=== PATIENT | female | born 1950 | race Caucasian/White ===

== ENCOUNTER 2020-01-25 12:04 | Outpatient (CLI) | payer MEDICARE, SELFPAY ==
--- NOTE | 2020-01-25 13:00 | ECG_ITS ---
Measurements Intervals [place] Rate: 76 P: -23 NE: 134 QRS: -28 QRSD: 80 T: 21 QT: 372 QTc: 419 Interpretive Statements SINUS RHYTHM ATRIAL PREMATURE COMPLEX VOLTAGE CRITERIA FOR LVH POOR R WAVE PROGRESSION, ANTERIOR LEADS MINIMAL Q WAVES- HIGH LATERAL LEADS BASELINE ARTIFACT- I, II, III, AVR, AVL, AVF BORDERLINE ECG Electronically Signed On 01-25-2020 16:27:17 CDT by Berry Frazier D.O.
[2020-01-25 13:29] LABS: Basophils Percent Auto 0.4 % (0.2-1.2); Eosinophils Absolute Auto 0.4 K/mm3 (0-0.3); Eosinophils Percent Auto 3.4 % (0-4.4); Hematocrit 39.9 % (37.0-47.0); Hemoglobin 12.9 g/dL (12.0-15.0); Immature Granulocyte Absolute 0.07 K/mm3 (0.00-0.031); Immature Granulocyte Percent A 0.6 % (0-0.5); Lymphocytes Absolute Auto 3.07 K/mm3 (0.9-3.2); Lymphocytes Percent Auto 27.9 % (18.3-44.2); Mean Corpuscular HGB Conc 32.3 g/dl (32-36); Mean Corpuscular Hemoglobin 29.7 pg (26-34); Mean Corpuscular Volume 91.7 fl (80-100); Mean Platelet Volume 9.4 fl (7.4-10.4); Monocytes Absolute Auto 0.7 K/mm3 (0.1-0.6); Monocytes Percent Auto 6.5 % (2.6-8.5); Neutrophils Absolute Auto 6.7 K/mm3 (1.3-6.7); Neutrophils Percent Auto 61.2 % (45.5-73.1); Platelet Count Result 399 k/mm3 (150-375); Red Blood Count 4.35 M/mm3 (4.2-5.4); Red Cell Distribution Width 14.1 % (11.5-14.5)
[2020-01-25 13:38] LABS: Urine Cotinine NEGATIVE
[2020-01-25 13:40] LABS: Albumin Level 4.2 g/dL (3.5-5.1); Estimated Glomerular Filt Rate > 60; Glucose 103 mg/dL (65-105)
[2020-01-25 13:41] LABS: Hemoglobin A1C 5.8 % (<5.7)
== END 2020-01-25 12:05 | disposition home or self-care (01) ==
LOC: ANHSURGERY 12:10
PROVIDERS: PCP Internal Medicine; Visit Provider Orthopaedic Surgery
DX: Z01.818 Encounter for other preprocedural examination (principal); M16.11 Unilateral primary osteoarthritis, right hip
CPT/HCPCS: 36415; 80307; 82040; 82565; 82947; 83036; 85025; 86850; 86900; 86901; 93005

== ENCOUNTER 2020-02-04 01:28 | Outpatient (CLI) | payer MEDICARE, SELFPAY ==
[2020-02-04 18:20] LABS: SARS-CoV-2 RNA PCR Negative
== END 2020-02-04 01:29 | disposition home or self-care (01) ==
LOC: ANHCOVIDDT 01:28
PROVIDERS: PCP Internal Medicine; Visit Provider Orthopaedic Surgery
DX: Z01.812 Encounter for preprocedural laboratory examination (principal); Z11.59 Encounter for screening for other viral diseases
CPT/HCPCS: 87635; C9803; U0003

== ENCOUNTER 2020-02-06 01:44 | Day surgery (SDC) | payer MEDICARE, SELFPAY ==
[2020-01-25 12:36] VITALS: BP 160/84; PULSE 74; RESP 22; TEMP 37.1; O2SAT 97
[2020-01-25 13:03] VITALS: BMI 40.1
--- NOTE | 2020-02-01 12:44 | PM.IMHP ---
H&P: HPI History of Present Illness Date/Time: 02/01/20 12:44 Chief complaint: Right Hip OA Narrative: Jennifer Carter is a 69 year old female who has an ongoing chronic history of right hip pain. Patient has pain in the right hip this radiates into her anterior thigh from the groin. She has pain with ambulation started pain wrist pain and night pain. She can not stand or walk for long periods. She is noting that over time her pain is worsening and despite conservative measures including anti-inflammatories and activity modification or symptoms continue. She notes decreasing range of motion and limitation of function in her daily life. X-rays show advanced primary osteoarthritis in the right hip joint. At this point the patient is discuss further treatment options in detail with Dr. Rai she not to proceed with right total hip arthroplasty. Review of Systems Review of Systems: All systems reviewed & are unremarkable except as noted in HPI and below PMFSH Social History Social History Smoking status: Never smoker Alcohol intake: current Substance use: never Spiritual care concerns: No Meds Home Medications and Allergies Home Medications Medication Instructions Recorded Confirmed Type escitalopram oxalate [Lexapro] 10 mg PO DAILY 01/25/20 01/25/20 History metoprolol succinate 50 mg PO DAILY 01/25/20 01/25/20 History Allergies Allergy/AdvReac Type Severity Reaction Status Date / Time Penicillins AdvReac Hives Verified 01/25/20 12:30 Exam Narrative: Exam Narrative: Patient is well-developed well-nourished female no acute distress. She is alert and oriented x3. Normal mood and affect. Hearing and vision intact. HEENT exam within normal limits. Heart regular rate rhythm. Lungs clear auscultation. Abdomen benign. Extremities showed the patient's right hip to be painful with manipulation and range of motion. She walks an antalgic gait because of her groin pain on the right, she has limited internal external rotation with a positive Stinchfield positive Darshana exam and pain with extremes of motion. Right hip joint is otherwise stable strength is 5 5. neurovascular the patient is intact. Skin is intact without rashes or lesions. Central nervous system exam within normal limits. Assessment and Plan Additional Plan Patient has advanced severe primary osteoarthritis right hip joint. The patient has discussed risks benefits limitations and alternatives to surgery in great detail Dr. Rai she has noted proceed with right total hip arthroplasty. Patient is scheduled to go surgery 02/06/[address] [facility] [address]. Rai. The patient voiced understanding agrees above plan.
[2020-02-06] VITALS (13 sets, daily range): BP systolic 109–143; BP diastolic 45–76; PULSE 60–99; RESP 14–21; TEMP 36.2–37.1; O2SAT 91–100
--- NOTE | ~2020-02-06 | XR_ITS ---
EXAMINATION: XR surgery orthopedic DATE: 02/06/2020 09:18 INDICATION: Intraoperative evaluation during right total hip arthroplasty TECHNIQUE: Frontal view of the right hip was obtained. COMPARISON: None. FINDINGS: Intraoperative image during a right total hip arthroplasty demonstrate placement of an acetabular com ponent fixed with at least 2 screws which appears in near anatomic alignment on the single image prov ided. A femoral broach is in place with the proximal tip centered over the acetabular component. Por tions of the pelvis are obscured by overlying bolsters. No fractures in the visualized bones. Mild le ft hip osteoarthritis. IMPRESSION: 1. Expected appearance during right total hip arthroplasty. Reviewed, dictated and finalized at location A.
[2020-02-06] MEDS: LACTATED RINGERS 1,000 ML 30 ML IV CONT ×2 (07:08→09:51)
--- NOTE | 2020-02-06 07:10 | WPDHPUPDATE1 ---
History and Physical Update Update Date/Time: 02/06/20 07:10 History and Physical has been reviewed, including an updated exam of the patient. There are NO changes in the patient's condition. Risks, benefits, and alternatives have been discussed and questions answered. Patient agrees to proceed with procedure.
[2020-02-06] MEDS: ACETAMINOPHEN 500 MG TABLET 1000 MG PO (07:19)
[2020-02-06] MEDS: TRANEXAMIC ACID 1,000MG/ISO100 1,000 MG/100 ML BAG 200 MG IVPB (07:19)
--- NOTE | 2020-02-06 07:20 | WPDANESEPPF ---
Anes - Initial Pre Proc Eval Procedure: Operation Date: 02/06/20 07:30 Proposed Procedures p Right Total Hip Arthroplasty - Master Rai MD Date/Time: 02/06/20 07:20 Surgeon: Master Rai MD Pre Op Diagnosis: Right Hip OA Patient Data Age: 69 Gender: F Height: 5 ft 1 in Weight: 96.4 kg Last Vital Signs Temp 37.1 C 01/25/20 12:36 Pulse 74 01/25/20 12:36 Resp 22 H 01/25/20 12:36 BP 160/84 H 01/25/20 12:36 Pulse Ox 97 01/25/20 12:36 Allergies Allergy/AdvReac Type Severity Reaction Status Date / Time Penicillins AdvReac Hives Verified 01/25/20 12:30 Home Medications Medication Instructions Recorded Confirmed Type escitalopram oxalate [Lexapro] 10 mg PO DAILY 01/25/20 02/06/20 History metoprolol succinate 50 mg PO DAILY 01/25/20 02/06/20 History Patient hx anesthesia problems: none Family hx anesthesia problems: none [facility] Past Medical History Medical History (Updated 02/06/20 @ 07:20 by Abe Levy MD) Depression HTN (hypertension) Morbid obesity MELVIN (obstructive sleep apnea) Social History Social History Smoking status: Never smoker Alcohol intake: current Substance use: never Living arrangements: alone Spiritual care concerns: No Anes - Eval Final PreProcedure Day of Procedure 02/06/20 07:20 Patient weight: morbidly obese Heart: regular rate and rhythm Lungs: clear to auscultation Airway: Mallampati scale class II Neurological: alert and oriented Last oral intake: >/= 8 hours ASA classification: III Emergent: no Anesthetic plan: proceed Anesthesia type and monitoring: general ETT and standard monitoring Informed Consent: The patient's anesthetic plan of GA with ETT and its attendant risks including CA, prolonged ventilation and blood clots in this morbidly obese patient with a BMI of greater than 40 and benefits were discussed with the patient/family/POA. Questions were solicited and answers provided to the satisfaction of the patient/family/POA.
[2020-02-06] MEDS: ceFAZolin 2 GM/D5W 50 ML 2 GM/50 ML BAG IVPB ×2 (07:29→15:12)
--- NOTE | 2020-02-06 09:12 | PM.PROC ---
Procedure Note - Detailed Date of procedure: 02/06/20 Pre-op diagnosis: Right Hip OA Post-op diagnosis: same Procedure performed: [Right] total hip arthroplasty Description of procedure: Patient was brought to the operating room and anesthetic was administered. The patient was placed with the [side] up and steriley prepped and draped in the usual manner. Longitudinal incision was done, dissection carried down to the fascia. A Hardinge type approach was used and the femoral head was dislocated anteriorly. Femoral head was removed a finger breath above the lesser trochanter. The acetabulum was serially reamed to accept a [52] component. This was impacted into place and secured with 2 25mm screws. A high wall liner was placed. The femur was reamed and broached to accept a [8] component which was impacted into place. A plus [0] ball and neck were placed and the hip was put through full range of motion. The hip was noted to be stable. The wounds were then closed in a layer fashion using #5 ethibond, 2 vicryl, 2-0 vicryl and jamison. Patient left the operating room in satisfactory condition. The femur cracked and had to be cabled and the stem reinserted. Anesthesia: GETA Surgeon: Master Rai MD Estimated blood loss (mL): 600 Drains: No Packing: No Pathology: none sent Complications: No immediate complications Condition: stable Disposition: PACU Findings: Arthritis
--- NOTE | 2020-02-06 11:20 | ADMGEN ---
This patient, Jennifer Carter, was admitted to Medical Room 258-01. Patient/family oriented to hospital policies and general routines including ID bracelet, bed and alarms, visiting hours, pain management, procedures, bathroom and other care routines, personal items, smoking policy, room service/diet, and visiting hours. Valuables list has been completed. Information on how to activate the Rapid Response Team has been discussed. Patient/Family are encouraged to report perceived risks to care and to ask questions if they do not understand what they are told or what they should do.
[2020-02-06] MEDS: SODIUM CHLORIDE 0.9% IV 1,000 ML 125 ML IV CONT (11:31)
[2020-02-06] MEDS: DOCUSATE SODIUM 100 MG CAPSULE PO ×2 (12:25→17:38)
[2020-02-06] MEDS: CELECOXIB 200 MG CAPSULE PO ×2 (12:25→17:38)
[2020-02-06] MEDS: RIVAROXABAN 10 MG TABLET PO (17:38)
[2020-02-07] MEDS: ceFAZolin 2 GM/D5W 50 ML 2 GM/50 ML BAG IVPB ×2 (00:12→08:13)
[2020-02-07 02:00] VITALS: BP 121/55; PULSE 72; RESP 20; TEMP 36.4; O2SAT 97
--- NOTE | 2020-02-07 02:00 | WPDCN ---
Assessment and Plan Assessment and plan (1) Osteoarthritis of right hip: Code(s): M16.11 - Unilateral primary osteoarthritis, right hip Status: Acute Assessment and Plan: Postoperative day 1, right total hip arthroplasty. Wound care and pain control deferred to Dr. Rai. DVT prophylaxis also per primary service. CBC and BMP ordered for a.m. (2) Hypertension: Code(s): I10 - Essential (primary) hypertension Status: Acute Assessment and Plan: Blood pressures reviewed and they are stable postoperatively. Resume metoprolol and monitor daily. (3) Depression: Code(s): F32.9 - Major depressive disorder, single episode, unspecified Status: Acute Assessment and Plan: Continue escitalopram. (4) Obstructive sleep apnea: Code(s): G47.33 - Obstructive sleep apnea (adult) (pediatric) Status: Acute Assessment and Plan: She stopped using her CPAP quite awhile ago and I encouraged her to reconsider. Additional Plan Thank you for allowing us to participate in this patient's care. Please do not hesitate to contact us with any questions. Supervising physician for this medical consultation is Dr. Dave Pereira. HPI Data of Consult Date/Time: 02/07/20 02:00 Requesting Physician: Master Rai MD Primary Care Provider: Catarino Rogers, Consult Narrative Narrative: Jennifer Carter is a 69-year-old female with osteoarthritis, hypertension, untreated obstructive sleep apnea, peripheral neuropathy, and depression whom the hospitalist service has been consulted for management of her medical conditions, status post elective right total hip arthroplasty. She is not a great historian, and seems somewhat forgetful with regards to her medical history. She has had longstanding pain in her right hip not amenable to conservative outpatient treatment and thus she elected for replacement today. Her surgery was performed under general anesthesia with no immediate complications documented an estimated blood loss of 600 mL. Postoperatively she is having pain mainly when up and trying to get to the bathroom. She denies postoperative fever, chills, chest pain, shortness of breath, nausea, or vomiting. She also denies paresthesias, skin color, and temperature changes distal to the surgical site. Review of Systems Review of Systems: Narrative: Twelve systems were reviewed with pertinent positives and negatives as per HPI. No fever, chills, or sweats. She denies recent cold flu symptoms. No sick contacts or exposure to those positive for COVID 19. Sounds like she has chronic dyspnea on exertion, which is unchanged. She ambulates with a wheeled walker and denies any recent falls. She lives a pretty sedentary lifestyle, and seems to spend a lot of time in a chair. No nausea, vomiting, or diarrhea. She denies dysuria and hematuria. No personal or family history of venous thromboembolism. Except as documented, all other systems were reviewed and are negative. [facility] Past Medical History Medical History (Updated 02/07/20 @ 03:53 by Flower Blanco PA-C) Depression Gastroesophageal reflux Hypertension Morbid obesity Obstructive sleep apnea No longer using her CPAP. Osteoarthritis Surgical History Surgical History (Updated 02/07/20 @ 03:48 by Flower Blanco PA-C) History of cataract extraction History of total right hip arthroplasty (~02/06/20) Family History Family History (Updated 02/07/20 @ 03:49 by Flower Blanco PA-C) Mother Acute myocardial infarction Father Accidental Social History Social History (Updated 02/07/20 @ 03:50 by Flower Blanco PA-C) Social History: The patient lives alone in her own steph
[2020-02-07 05:48] VITALS: BP 126/57; PULSE 72; RESP 20; TEMP 36.1; O2SAT 97
[2020-02-07 06:02] LABS: Basophils Percent Auto 0.2 % (0.2-1.2); Eosinophils Absolute Auto 0.1 K/mm3 (0-0.3); Eosinophils Percent Auto 0.9 % (0-4.4); Hemoglobin 9.7 g/dL (12.0-15.0); Immature Granulocyte Percent A 0.8 % (0-0.5); Lymphocytes Absolute Auto 2.93 K/mm3 (0.9-3.2); Mean Corpuscular HGB Conc 32.3 g/dl (32-36); Mean Corpuscular Hemoglobin 29.7 pg (26-34); Mean Corpuscular Volume 91.7 fl (80-100); Mean Platelet Volume 9.7 fl (7.4-10.4); Monocytes Absolute Auto 1.4 K/mm3 (0.1-0.6); Monocytes Percent Auto 10.1 % (2.6-8.5); Neutrophils Absolute Auto 8.8 K/mm3 (1.3-6.7); Platelet Count Result 315 k/mm3 (150-375); Red Blood Count 3.27 M/mm3 (4.2-5.4); Red Cell Distribution Width 14.1 % (11.5-14.5); White Blood Count 13.3 K/mm3 (4.5-10.0)
[2020-02-07 06:12] LABS: Anion Gap 7 mmol/L (8-16); Blood Urea Nitrogen 14 mg/dL (7-17); Calcium 8.4 mg/dL (8.4-10.2); Carbon Dioxide 21 mmol/L (22-30); Chloride 107 mmol/L (98-107); Estimated CRCL calculation 80 ml/min; Estimated Glomerular Filt Rate > 60; Glucose 113 mg/dL (65-105); Potassium 4.1 mmol/L (3.4-5.0); Sodium 135 mmol/L (137-145)
[2020-02-07] MEDS: ESCITALOPRAM OXALATE 10 MG TABLET PO (08:14)
[2020-02-07] MEDS: CELECOXIB 200 MG CAPSULE PO (08:14)
[2020-02-07] MEDS: DOCUSATE SODIUM 100 MG CAPSULE PO (08:14)
--- NOTE | 2020-02-07 08:46 | WPDANESPN ---
Anes - Prog Note Post-Op Date/Time: 02/07/20 08:46 Cardiovascular status: normal Respiratory status: normal Airway patency: baseline Mental status: baseline Post-Op hydration status: normal Vital Signs: Last Vital Signs Temp 36.1 C L 02/07/20 05:48 Pulse 72 02/07/20 05:48 Resp 20 02/07/20 05:48 BP 126/57 L 02/07/20 05:48 Pulse Ox 97 02/07/20 05:48 I/O: Intake & Output 02/06/20 02/07/20 02/07/20 23:59 07:59 15:59 Intake Total 540 170 Output Total 1 Balance 540 169 Laboratory Tests 02/07/20 05:38 02/07/20 05:38 02/07/20 02/07/20 02/07/20 05:38 05:38 05:38 WBC 13.3 H RBC 3.27 L Hgb 9.7 L D Hct 30.0 L MCV 91.7 MCH 29.7 MCHC 32.3 RDW 14.1 Plt Count 315 MPV 9.7 Immature Gran % (Auto) 0.8 H Neut % (Auto) 66.0 Lymph % (Auto) 22.0 [place] % (Auto) 10.1 H Eos % (Auto) 0.9 Baso % (Auto) 0.2 Lymph # (Auto) 2.93 [place] # (Auto) 1.4 H Eos # (Auto) 0.1 Baso # (Auto) 0.0 Abs Immat Gran (auto) 0.10 H Absolute Neuts (auto) 8.8 H Absolute Nucleated RBC 0.0 Nucleated RBC % 0.0 Sodium 135 L Potassium 4.1 Chloride 107 Carbon Dioxide 21 L Anion Gap 7 L BUN 14 Creatinine 0.60 L Estim Creat Clear Calc 80 Estimated GFR > 60 Glucose 113 H Calcium 8.4 Magnesium 2.0 Post-procedural complaints: none Patient Feedback: Patient satisfied with anesthetic care.
[2020-02-07 10:00] VITALS: BP 132/75; PULSE 81; RESP 16; TEMP 36.8; O2SAT 98
[2020-02-07 14:00] VITALS: BP 121/42; PULSE 87; RESP 15; TEMP 36.7; O2SAT 97
--- NOTE | 2020-02-07 14:03 | PM.PNORT ---
Subjective Subjective Date/Time Seen: 02/07/20 14:03 Objective Data Vital Signs Vital Signs: Vital Signs - 24 hr 02/06/20 18:00 02/06/20 22:00 02/07/20 02:00 Temperature 37.1 C 36.2 C L 36.4 C L Pulse Rate 83 76 72 Respiratory Rate 15 20 20 Blood Pressure 111/45 L 125/55 L 121/55 L Pulse Oximetry 97 99 97 02/07/20 05:48 02/07/20 10:00 Temperature 36.1 C L 36.8 C Pulse Rate 72 81 Respiratory Rate 20 16 Blood Pressure 126/57 L 132/75 Pulse Oximetry 97 98 Intake/Output Intake/Output: Intake & Output 02/04/20 02/05/20 02/06/20 02/07/20 23:59 23:59 23:59 23:59 Intake Total 1580 460 Output Total 1 Balance 1580 459 Meds/Results Medications: Active Medications Generic Name Dose Route Start Last Admin Trade Name Freq PRN Reason Stop Dose Admin Celecoxib 200 mg 02/06/20 11:02 02/07/20 08:14 Celebrex PO 200 mg BIDWM LINH Administration Docusate Sodium 100 mg 02/06/20 11:02 02/07/20 08:14 Colace Capsule PO 100 mg BID LINH Administration Escitalopram Oxalate 10 mg 02/07/20 09:00 02/07/20 08:14 Lexapro PO 10 mg DAILY LINH Administration Morphine Sulfate 4 mg 02/06/20 11:02 Morphine Sulfate Inj IV PUSH Q2H PRN Breakthrough pain rated 7-10 Naloxone HCl 0.1 mg 02/06/20 11:02 Narcan IV PUSH Q2M PRN Opiate Reversal Oxycodone HCl 5 mg 02/06/20 11:02 Roxicodone Ir Tablet PO Q4H PRN Pain Rated 4-6 Oxycodone HCl 5 mg 02/06/20 11:00 02/07/20 11:08 Roxicodone Ir Tablet PO 5 mg Q4H LINH Administration Rivaroxaban 10 mg 02/06/20 17:00 02/06/20 17:38 Xarelto PO 02/17/20 17:01 10 mg DAILY@17 LINH Administration Tramadol HCl 50 mg 02/06/20 11:02 Ultram PO Q4H PRN Pain Rated 1-3 Radiology Results: ITS Impressions Intraoperative X-Ray 02/06/20 09:43 IMPRESSION: 1. Expected appearance during right total hip arthroplasty. Labs Labs: Laboratory Results - last 24 hr 02/07/20 02/07/20 02/07/20 05:38 05:38 05:38 WBC 13.3 H RBC 3.27 L Hgb 9.7 L D Hct 30.0 L MCV 91.7 MCH 29.7 MCHC 32.3 RDW 14.1 Plt Count 315 MPV 9.7 Immature Gran % (Auto) 0.8 H Neut % (Auto) 66.0 Lymph % (Auto) 22.0 [place] % (Auto) 10.1 H Eos % (Auto) 0.9 Baso % (Auto) 0.2 Lymph # (Auto) 2.93 [place] # (Auto) 1.4 H Eos # (Auto) 0.1 Baso # (Auto) 0.0 Abs Immat Gran (auto) 0.10 H Absolute Neuts (auto) 8.8 H Absolute Nucleated RBC 0.0 Nucleated RBC % 0.0 Sodium 135 L Potassium 4.1 Chloride 107 Carbon Dioxide 21 L Anion Gap 7 L BUN 14 Creatinine 0.60 L Estim Creat Clear Calc 80 Estimated GFR > 60 Glucose 113 H Calcium 8.4 Magnesium 2.0
--- NOTE | 2020-02-07 14:54 | PM.IMPN ---
Progress Note: A&P Assessment and Plan (1) Osteoarthritis of right hip: Code(s): M16.11 - Unilateral primary osteoarthritis, right hip Status: Acute Assessment and Plan: Postoperative day 1, right total hip arthroplasty. Wound care and pain control deferred to Dr. Rai. DVT prophylaxis also per primary service., Juan C. will be discharged home with home physical therapy when ortho decides (2) Hypertension: Code(s): I10 - Essential (primary) hypertension Status: Acute Assessment and Plan: Blood pressures reviewed and they are stable postoperatively. ortho has held metoprolol and since she has no known underlying cardiac ischemia will continue to monitor and resume metoprolol XL on discharge (3) Depression: Code(s): F32.9 - Major depressive disorder, single episode, unspecified Status: Acute Assessment and Plan: Continue escitalopram. (4) Obstructive sleep apnea: Code(s): G47.33 - Obstructive sleep apnea (adult) (pediatric) Status: Acute Assessment and Plan: She stopped using her CPAP quite awhile ago and I encouraged her to reconsider. (5) Postoperative anemia due to acute blood loss: Code(s): D62 - Acute posthemorrhagic anemia Status: Acute Assessment and Plan: hemoglobin dropped 2-3 units postoperatively and tolerating well. Can follow as an outpatient if needed Subjective Date/time seen: 02/07/20 14:54 Interval history: Date of visit 02/06. 69-year-old hypertensive white female who underwent right total hip arthroplasty on the . Do and well up with therapy with some pain to be expected. no shortness of breath chest pain or palpitation. anticipating discharge home today. Exam Narrative: Exam Narrative: blood pressure 122/52 pulse is 86 and regular afebrile General: lying comfortably in bed HEENT: Pupils reactive. Neck: Supple. Respiratory: Lungs are clear to auscultation bilaterally. Cardiovascular: Regular rate and rhythm with S1-S2. 2/6 systolic murmur best heard at the upper sternal border. Gastrointestinal: Abdomen is soft, obese, nontender, and nondistended with positive bowel sounds. Skin: Warm and dry. No rash or lesions seen Extremities: No edema. Radial and pedal pulses intact. Musculoskeletal: Right hip dressing is clean, dry, and intact. She is neurovascular intact distal to the surgical site. Neurological: Alert and oriented x3. Cranial nerves 2-12 grossly intact. No gross focal deficits Psychiatric: She is pleasant and cooperative. Objective Data Vital Signs Vital Signs: Vital Signs - 24 hr 02/06/20 18:00 02/06/20 22:00 02/07/20 02:00 Temperature 37.1 C 36.2 C L 36.4 C L Pulse Rate 83 76 72 Respiratory Rate 15 20 20 Blood Pressure 111/45 L 125/55 L 121/55 L Pulse Oximetry 97 99 97 02/07/20 05:48 02/07/20 10:00 02/07/20 14:00 Temperature 36.1 C L 36.8 C 36.7 C Pulse Rate 72 81 87 Respiratory Rate 20 16 15 Blood Pressure 126/57 L 132/75 121/42 L Pulse Oximetry 97 98 97 Intake/Output Intake/Output: Intake & Output 02/04/20 02/05/20 02/06/20 02/07/20 23:59 23:59 23:59 23:59 Intake Total 1580 700 Output Total 1 Balance 1580 699 Meds/Results Medications: Active Medications Generic Name Dose Route Start Last Admin Trade Name Freq PRN Reason Stop Dose Admin Celecoxib 200 mg 02/06/20 11:02 02/07/20 08:14 Celebrex PO 200 mg BIDWM [facility] Administration Docusate Sodium 100 mg 02/06/20 11:02 02/07/20 08:14 Colace Capsule PO 100 mg BID LINH Administration Escitalopram Oxalate 10 mg 02/07/20 09:00 02/07/20 08:14 Lexapro PO 10 mg DAILY LINH Administration Morphine Sulfate 4 mg 02/06/20 11:02
== END 2020-02-07 14:54 | disposition home health service (06) ==
LOC: ANHSURGERY 06:19 → ANH2MED 11:09
PROVIDERS: Physician Assistant; PCP Internal Medicine; Visit Provider Orthopaedic Surgery
PROC: (CPT 27130; principal; 2020-02-06 07:30)
DX: M16.11 Unilateral primary osteoarthritis, right hip (principal); I10 Essential (primary) hypertension; G47.33 Obstructive sleep apnea (adult) (pediatric); F32.9 Major depressive disorder, single episode, unspecified; E66.01 Morbid (severe) obesity due to excess calories; Z68.41 Body mass index [BMI] 40.0-44.9, adult
CPT/HCPCS: 27130; 36415; 80048; 80307; 82040; 82565; 82947; 83036; 83735; 85025; 86850; 86900; 86901; 93005; 97110; 97116; 97161; 97165; 97530; A9270; C1713; C1776; J0171; J0330; J0690; J1100; J1170; J1885; J2250; J2270; J2370; J2405; J2704; J2710; J2795; J3010; J3370; J7030; J7120

== ENCOUNTER 2020-03-07 20:54 | Emergency (ER) | payer MEDICARE, SELFPAY ==
[2020-03-07 20:56] VITALS: BP 149/68; PULSE 88; RESP 16; TEMP 36.3; O2SAT 98
[2020-03-07 21:14] LABS: Basophils Percent Auto 0.3 % (0.2-1.2); Eosinophils Absolute Auto 0.4 K/mm3 (0-0.3); Eosinophils Percent Auto 3.5 % (0-4.4); Hematocrit 35.5 % (37.0-47.0); Hemoglobin 11.5 g/dL (12.0-15.0); Immature Granulocyte Absolute 0.07 K/mm3 (0.00-0.031); Immature Granulocyte Percent A 0.6 % (0-0.5); Lymphocytes Absolute Auto 4.01 K/mm3 (0.9-3.2); Lymphocytes Percent Auto 31.9 % (18.3-44.2); Mean Corpuscular HGB Conc 32.4 g/dl (32-36); Mean Corpuscular Hemoglobin 28.9 pg (26-34); Mean Corpuscular Volume 89.2 fl (80-100); Mean Platelet Volume 9.3 fl (7.4-10.4); Monocytes Percent Auto 7.9 % (2.6-8.5); Neutrophils Percent Auto 55.8 % (45.5-73.1); Platelet Count Result 417 k/mm3 (150-375); Red Blood Count 3.98 M/mm3 (4.2-5.4); Red Cell Distribution Width 13.6 % (11.5-14.5); White Blood Count 12.6 K/mm3 (4.5-10.0)
[2020-03-07 21:26] LABS: Alanine Aminotransferase 14 U/L (4-35); Albumin Level 4.3 g/dL (3.5-5.1); Alkaline Phosphatase 135 U/L (38-126); Anion Gap 8 mmol/L (8-16); Aspartate Amino Transferase 19 U/L (14-36); Bilirubin,Total 0.1 mg/dL (0.2-1.3); Blood Urea Nitrogen 18 mg/dL (7-17); Calcium 9.3 mg/dL (8.4-10.2); Carbon Dioxide 22 mmol/L (22-30); Chloride 108 mmol/L (98-107); Estimated Glomerular Filt Rate > 60; Glucose 116 mg/dL (65-105); Lactic Acid Reflex 1.4 mmol/L (0.7-2.1); Potassium 4.8 mmol/L (3.4-5.0); Sodium 138 mmol/L (137-145)
[2020-03-07 21:30] LABS: Atypical Lymphocytes Present; Platelet Estimate Increased (Adequate)
--- NOTE | 2020-03-07 21:31 | ED.WOUNDLAC ---
HPI - Wound/Laceration General Chief Complaint: Wound/Laceration Stated Complaint: poss post-op infect Time Seen by Provider: 03/07/20 21:31 History of Present Illness HPI narrative: Right hip replacement [address] Rai. Over the past few days the wound became painful, red and hot, and she reports a large amount of brown drainage. Currently her symptoms have largely subsided, she continues to have a small amount of drainage. No fever, or other systemic symptoms. Related Data Home Medications Medication Instructions Recorded Confirmed escitalopram oxalate [Lexapro] 10 mg PO DAILY 01/25/20 02/06/20 metoprolol succinate 50 mg PO DAILY 01/25/20 02/06/20 Allergies Allergy/AdvReac Type Severity Reaction Status Date / Time Penicillins AdvReac Hives Verified 02/06/20 11:22 Review of Systems Review of Systems: All systems reviewed & are unremarkable except as noted in HPI and below Constitutional: Constitutional: Denies chills, Denies fever(s) and Denies weakness Cardiovascular: Cardiovascular: Denies chest pain Respiratory: Respiratory: Denies dyspnea Gastrointestinal: Gastrointestinal: Denies nausea Neurologic: Denies numbness and Denies weakness [facility] Past Medical History Medical History Depression Gastroesophageal reflux Hypertension Morbid obesity Obstructive sleep apnea No longer using her CPAP. Osteoarthritis Surgical History Surgical History History of cataract extraction History of total right hip arthroplasty (~02/06/20) Family History Family History Mother Acute myocardial infarction Father Accidental Social History Social History Social History: The patient lives alone in her own home in [place]. She is a lifelong nonsmoker and denies alcohol and illicit substance use. She has 5 children, and names them all as her surrogate decision makers. She wishes to be a full code. Spiritual care concerns: No Exam Const: General: no acute distress and alert Orientation/consciousness: patient oriented x3 HENMT: Head: normal to inspection Resp: Effort & Inspection: normal respiratory effort Cardio: Other: 2+ right DP pulse Skin: Other: Healed surgical wound with punctate opening centrally draining a small amount of brown tinged serous fluid. No significant erythema or induration. Neuro: General: patient oriented x3 and moves all extremities Speech: normal speech Extrem: General: normal to inspection Course Vital Signs Vital signs: Vital Signs Temperature 36.3 C L 03/07/20 20:56 Pulse Rate 88 03/07/20 20:56 Respiratory Rate 16 03/07/20 20:56 Blood Pressure 149/68 H 03/07/20 20:56 Pulse Oximetry 98 03/07/20 20:56 Temperature 36.3 C L 03/07/20 20:56 Pulse Rate 99 03/07/20 21:35 Respiratory Rate 20 03/07/20 21:35 Blood Pressure 167/66 H 03/07/20 21:35 Pulse Oximetry 99 03/07/20 21:35 MDM - Wound/Laceration MDM Narrative Medical decision making narrative: She most likely has a draining seroma. Given her description of being red and hot along with her mild leukocytosis I am concerned that it could have some infectious component. I will start her on bactrim for 7 days. Medical Records Attestation: I reviewed the patient's medical records. Lab Data Attestation: I reviewed the patient's lab results. Result diagrams: 03/07/20 21:06 03/07/20 21:06 Labs: Lab Results 03/07/20 03/07/20 03/07/20 Range/Units 21:06 21:06 21:06 WBC 12.6 H (4.5-10.0) K/mm3 RBC 3.98 L (4.2-5.4) M/mm3 Hgb 11.5 L (12.0-15.0) g/dL Hct 35.5 L (37.0-47.0) % MCV 89.2 (80-100) fl MCH 28.9 (26-34) pg MCHC 32.4 (32-36) g/dl RDW 13.6 (11.5-14.5) % Plt C
[2020-03-07 21:35] VITALS: BP 167/66; PULSE 99; RESP 20; O2SAT 99
== END 2020-03-07 22:08 | disposition home or self-care (01) ==
LOC: ANHED 21:54
PROVIDERS: Emergency Provider Emergency Medicine; PCP Internal Medicine
DX: T81.89XA Other complications of procedures, not elsewhere classified, initial encounter (principal); F32.9 Major depressive disorder, single episode, unspecified; K21.9 Gastro-esophageal reflux disease without esophagitis; I10 Essential (primary) hypertension; E66.01 Morbid (severe) obesity due to excess calories; M19.90 Unspecified osteoarthritis, unspecified site; Z96.651 Presence of right artificial knee joint; Z98.49 Cataract extraction status, unspecified eye
CPT/HCPCS: 36415; 80053; 83605; 85025; 99283; A9270

== ENCOUNTER 2020-03-14 11:32 | Inpatient (IN) | payer MEDICARE, SELFPAY ==
[2020-03-14] VITALS (9 sets, daily range): BP systolic 120–192; BP diastolic 57–85; PULSE 79–97; RESP 16–20; TEMP 36.3–36.8; O2SAT 95–99; BMI 43.9
--- NOTE | ~2020-03-14 | US_ITS ---
EXAMINATION: US hip asp inj w image RT DATE: 03/14/2020 13:42 INDICATION: Right hip pain and erythema post right hip arthroplasty. Aspiration is requested. TECHNIQUE: The procedure including the risks, benefits, and alternatives was discussed with the patie nt. Risks discussed included bleeding and infection. The patient understood the risks and agreed to p roceed. A timeout was performed to verify the patient's name, date of , and procedure to be p erformed. The skin overlying the right femoral neck was prepped and draped in usual sterile fashion. Anesthetic was administered with 1% lidocaine subcutaneously. An 18 gauge needle was advanced unde r ultrasound guidance into a hypoechoic region along the neck of the femoral component of the arthrop lasty which was suspicious for effusion. No fluid however was able to be aspirated with the needle ad vanced into several regions of the fluid collection including making contact with the arthroplasty co mponent. The needle was removed and the entry site was cleaned and dressed. Attention was then turned to a small fluid collection identified on finished carpet inspector ultrasound images deep to the surgical wound at the lateral aspect of the proximal right thigh. The skin overlying the region was prepped and draped in u sual sterile fashion. Anesthetic was administered with 1% lidocaine subcutaneously. An 18-gauge needl e was advanced into the small fluid pocket utilizing ultrasound guidance. 20 mm of fluid was aspirate d, initially relatively clear serosanguineous but transitioning to cloudy reddish-brown fluid. The ne edle was removed and the entry site was cleaned and dressed. The fluid was sent to the lab for studie s as ordered by the referring physician. There were no immediate complications. FINDINGS: Ultrasound images demonstrate the needle advanced into an approximately 4 x 1 cm hypoechoic region along the linear echogenic anterior margin of the neck of the femoral component from which no fluid was able to be aspirated suggesting this represents synovium/granulation tissue or thick clot. Subsequent images demonstrate the needle advanced into the 2.9 x 0.8 x 1.2 cm anechoic fluid collect ion deep to the surgical scar. Initially this yielded clear reddish-orange serosanguineous fluid singletary aniket with continued aspiration a greater than expected amount of fluid was obtained which appeared meg udy reddish-brown suggesting communication with a more extensive fluid collection not appreciated on imaging. IMPRESSION: 1. Ultrasound-guided attempted aspiration along side the neck of the femoral component of a right to lilly hip arthroplasty which yielded no fluid. 2. Successful aspiration of 20 mL of purulent appearing cloudy reddish-brown fluid from a subcutaneou s fluid collection located deep to the caudal margin of the surgical wound. Reviewed, dictated and finalized at location A. IMPRESSION: 1. Ultrasound-guided attempted aspiration along side the neck of the femoral c omponent of a right total hip arthroplasty which yielded no fluid. 2. Successful aspiration of 20 mL of purulent appearing cloudy reddish-brown fl uid from a subcutaneous fluid collection located deep to the caudal margin of t he surgical wound.
--- NOTE | 2020-03-14 12:03 | ED.WOUNDLAC ---
HPI - Wound/Laceration General Chief Complaint: Wound/Laceration Stated Complaint: vag bleeding Time Seen by Provider: 03/14/20 11:50 History of Present Illness HPI narrative: She awoke from sleep twice last night with her bed soaked in blood tinged fluid. She is not sure where the fluid was coming from .She had a right hip replacement about 1 month ago. I personally saw her 1 week ago for similar drainage from the healing wound. I placed her on Bactrim at that time. The pain and draiage decreased until last night. No fever. Related Data Home Medications Medication Instructions Recorded Confirmed metoprolol succinate 50 mg PO DAILY 01/25/20 03/14/20 Allergies Allergy/AdvReac Type Severity Reaction Status Date / Time Penicillins AdvReac Hives Verified 03/14/20 16:17 Review of Systems Review of Systems: All systems reviewed & are unremarkable except as noted in HPI and below Constitutional: Constitutional: Denies chills, Denies fever(s) and Denies weakness Cardiovascular: Cardiovascular: Denies chest pain Respiratory: Respiratory: Denies dyspnea Gastrointestinal: Gastrointestinal: Denies abdominal pain, Denies nausea and Denies vomiting Genitourinary: Genitourinary: Denies abnormal vaginal bleeding, Denies hematuria and Denies dysuria Musculoskeletal: Musculoskeletal: Denies back pain Neurologic: Denies numbness and Denies weakness PMF Past Medical History Medical History Depression Gastroesophageal reflux Hypertension Morbid obesity Obstructive sleep apnea No longer using her CPAP. Osteoarthritis Surgical History Surgical History History of cataract extraction History of total right hip arthroplasty (~02/06/20) Family History Family History Mother Acute myocardial infarction Father Accidental Social History Social History Social History: The patient lives alone in her own home in [place]. She is a lifelong nonsmoker and denies alcohol and illicit substance use. She has 5 children, and names them all as her surrogate decision makers. She wishes to be a full code. Smoking status: Never smoker Alcohol intake: never Substance use: never Substance use type: does not use Spiritual care concerns: No Exam Const: General: healthy appearing, no acute distress and alert Nutritional Appearance: obese Orientation/consciousness: patient oriented x3 HENMT: Head: normal to inspection Resp: Effort & Inspection: normal respiratory effort Auscultation: clear to auscultation bilaterally Cardio: Rate: regular rate Rhythm: regular rhythm GI: GI Palp: Yes Soft to palpation and No Tenderness to palpation present (GI) Skin: Other: Healed surgical scar over right hip with with punctate openings. No active drainage. Minimal redness of surounding area Neuro: General: patient oriented x3, moves all extremities, no focal motor deficits and CN's II-XI intact bilaterally Speech: normal speech Extrem: General: no edema Course Vital Signs Vital signs: Vital Signs Temperature 36.3 C L 03/14/20 12:01 Pulse Rate 97 03/14/20 12:01 Respiratory Rate 20 03/14/20 12:01 Blood Pressure 175/75 H 03/14/20 12:01 Pulse Oximetry 99 03/14/20 12:01 Temperature 36.8 C 03/14/20 16:24 Pulse Rate 84 03/14/20 16:24 Respiratory Rate 20 03/14/20 16:24 Blood Pressure 120/57 L 03/14/20 16:24 Pulse Oximetry 97 03/14/20 16:24 MDM - Wound/Laceration MDM Narrative Medical decision making narrative: Case discussed wtih Dr. Jasso. Asked for IR drainage. After IR drainage he has decided to liberty her for drainage of her seroma. Medical Records Attestation: I reviewed the patient's medical records. Lab Data Attestation: I reviewed the patien
--- NOTE | 2020-03-14 14:27 | ECG_ITS ---
Measurements Intervals [place] Rate: 83 P: -30 KS: 135 QRS: -28 QRSD: 83 T: 35 QT: 362 QTc: 427 Interpretive Statements SINUS RHYTHM BORDERLINE R WAVE PROGRESSION, ANTERIOR LEADS BASELINE ARTIFACT- I, II, III, AVR, AVL, AVF BORDERLINE ECG Electronically Signed On 03-14-2020 15:48:16 CDT by Berry Frazier D.O.
--- NOTE | 2020-03-14 14:30 | PM.IMHP ---
H&P: HPI History of Present Illness Date/Time: 03/14/20 14:30 Chief complaint: Right hip drainage Narrative: Jennifer Carter is a 69 year old female Who presents with drainage from her right hip. For the past couple of weeks the patient is noted some brown serous type drainage from her right hip. She underwent a right total hip arthroplasty performed by Dr. Rai February 06, 2020. The patient did develop some erythema he tenderness about the incision and noted some occasional drainage that looked brown in color. She went to emergency room on 03/07/2020 and had an evaluation. At that time she denies any fevers chills night sweats or constitutional symptoms. She was concerned about the drainage. It was thought that maybe she had a draining seroma with the possibility of superficial infection. She was placed on Bactrim DS x1 week. Over the course of the week she has noted that the drainage has increased a bit. Today she called the orthopedic office to report the drainage overnight was asked to go to the emergency room. The patient was taken the emergency room by her family and hip aspiration under fluoroscopy was done. A needle placed deep to the femoral neck of the hip component revealed no fluid. A more superficial area that was in a caudal location to the incision did reveal about 20 cc of cloudy brown fluid. This is being sent for culture. In the meantime there is a concern for a draining hematoma, the fluid is noted to be cloudy by the radiologist which could indicate purulence. Dr. Rai at this time is considering a wound debridement with I&D of the fluid collection and washout of the superficial layers of the hip wound. At the time of the surgery further inspection would be indicated of the deeper layers to make sure that the fluid collection does not track down to the total hip arthroplasty implants. The patient is now admitted for further evaluation treatment of her right hip wound drainage as described above. Review of Systems Review of Systems: All systems reviewed & are unremarkable except as noted in HPI and below PMFSH Past Medical History Medical History Depression Gastroesophageal reflux Hypertension Morbid obesity Obstructive sleep apnea No longer using her CPAP. Osteoarthritis Surgical History Surgical History History of cataract extraction History of total right hip arthroplasty (~02/06/20) Family History Family History Mother Acute myocardial infarction Father Accidental Social History Social History Social History: The patient lives alone in her own home in [place]. She is a lifelong nonsmoker and denies alcohol and illicit substance use. She has 5 children, and names them all as her surrogate decision makers. She wishes to be a full code. Spiritual care concerns: No Meds Home Medications and Allergies Home Medications Medication Instructions Recorded Confirmed Type metoprolol succinate 50 mg PO DAILY 01/25/20 02/06/20 History rivaroxaban [Xarelto] 10 mg PO DAILY@17 tablet 02/07/20 Rx sulfamethoxazole-trimethoprim 1 tablet PO Q12H #14 tablet 03/07/20 Rx [Bactrim DS] Allergies Allergy/AdvReac Type Severity Reaction Status Date / Time Penicillins AdvReac Hives Verified 03/14/20 12:04 Vital Signs Vital Signs - 24 hr 03/14/20 12:01 03/14/20 13:48 Temperature 36.3 C L Pulse Rate 97 81 Respiratory Rate 20 20 Blood Pressure 175/75 H 151/85 H Pulse Oximetry 99 95 Exam Narrative: Exam Narrative: Patient is noted be a well-developed well-nourished female no acute distress. She is alert and oriented x3. Normal mood and affect. HEENT exam within normal limits. Heart regular rate rhythm. Lungs clear auscultation. Abdomen benign. Extrem
--- NOTE | 2020-03-14 15:54 | ADMGEN ---
This patient, Jennifer Carter, was admitted to Medical Room 247-. Patient/family oriented to hospital policies and general routines including ID bracelet, bed and alarms, visiting hours, pain management, procedures, bathroom and other care routines, personal items, smoking policy, room service/diet, and visiting hours. Valuables list has been completed. Information on how to activate the Rapid Response Team has been discussed. Patient/Family are encouraged to report perceived risks to care and to ask questions if they do not understand what they are told or what they should do.
[2020-03-14] MEDS: LACTATED RINGERS 1,000 ML 125 ML IV CONT (16:16)
[2020-03-14 18:37] LABS: Basophils Percent Auto 0.3 % (0.2-1.2); Eosinophils Absolute Auto 0.3 K/mm3 (0-0.3); Eosinophils Percent Auto 2.7 % (0-4.4); Hematocrit 35.1 % (37.0-47.0); Hemoglobin 11.1 g/dL (12.0-15.0); Immature Granulocyte Absolute 0.06 K/mm3 (0.00-0.031); Immature Granulocyte Percent A 0.5 % (0-0.5); Lymphocytes Absolute Auto 3.16 K/mm3 (0.9-3.2); Lymphocytes Percent Auto 27.6 % (18.3-44.2); Mean Corpuscular HGB Conc 31.6 g/dl (32-36); Mean Corpuscular Hemoglobin 28.8 pg (26-34); Mean Corpuscular Volume 90.9 fl (80-100); Mean Platelet Volume 9.2 fl (7.4-10.4); Monocytes Absolute Auto 0.6 K/mm3 (0.1-0.6); Monocytes Percent Auto 4.9 % (2.6-8.5); Neutrophils Absolute Auto 7.3 K/mm3 (1.3-6.7); Platelet Count Result 385 k/mm3 (150-375); Red Blood Count 3.86 M/mm3 (4.2-5.4); Red Cell Distribution Width 13.9 % (11.5-14.5); White Blood Count 11.5 K/mm3 (4.5-10.0)
[2020-03-14 18:48] LABS: INR 1.1; Partial Thromboplastin Time 29.7 SECONDS (22.3-36.8); Prothrombin Time 14.1 Seconds (11.1-14.7)
[2020-03-14 18:51] LABS: Anion Gap 8 mmol/L (8-16); Blood Urea Nitrogen 16 mg/dL (7-17); Calcium 9.2 mg/dL (8.4-10.2); Carbon Dioxide 21 mmol/L (22-30); Chloride 106 mmol/L (98-107); Estimated CRCL calculation 76 ml/min; Estimated Glomerular Filt Rate > 60; Glucose 197 mg/dL (65-105); Potassium 3.9 mmol/L (3.4-5.0); Sodium 135 mmol/L (137-145)
--- NOTE | 2020-03-14 18:58 | WPDANESEPP ---
Anes - Eval Pre Procedure Procedure: Operation Date: 03/15/20 07:30 Proposed Procedures p Incision And Drainage Right Hip - Master Rai MD s Possible Component Exchange - Master Rai MD Date/Time: 03/14/20 18:58 Pre Op Diagnosis: Seroma Patient Data Age: 69 Gender: F Height: 5 ft 2 in Weight: 109 kg Last Vital Signs Temp 98.3 F 03/14/20 16:24 Pulse 84 03/14/20 16:24 Resp 20 03/14/20 16:24 BP 120/57 L 03/14/20 16:24 Pulse Ox 97 03/14/20 16:24 Allergies Allergy/AdvReac Type Severity Reaction Status Date / Time Penicillins AdvReac Hives Verified 03/14/20 16:17 Home Medications Medication Instructions Recorded Confirmed Type metoprolol succinate 50 mg PO DAILY 01/25/20 03/14/20 History sulfamethoxazole-trimethoprim 1 tablet PO Q12H #14 tablet 03/07/20 03/14/20 Rx [Bactrim DS] Laboratory Tests 03/14/20 03/14/20 03/14/20 18:31 18:31 18:31 WBC 11.5 K/mm3 H K/mm3 (4.5-10.0) RBC 3.86 M/mm3 L M/mm3 (4.2-5.4) Hgb 11.1 g/dL L g/dL (12.0-15.0) Hct 35.1 % L % (37.0-47.0) MCV 90.9 fl fl (80-100) MCH 28.8 pg pg (26-34) MCHC 31.6 g/dl L g/dl (32-36) RDW 13.9 % % (11.5-14.5) Plt Count 385 k/mm3 H k/mm3 (150-375) MPV 9.2 fl fl (7.4-10.4) Immature Gran % (Auto) 0.5 % % (0-0.5) Neut % (Auto) 64.0 % % (45.5-73.1) Lymph % (Auto) 27.6 % % (18.3-44.2) [place] % (Auto) 4.9 % % (2.6-8.5) Eos % (Auto) 2.7 % % (0-4.4) Baso % (Auto) 0.3 % % (0.2-1.2) Lymph # (Auto) 3.16 K/mm3 K/mm3 (0.9-3.2) [place] # (Auto) 0.6 K/mm3 K/mm3 (0.1-0.6) Eos # (Auto) 0.3 K/mm3 K/mm3 (0-0.3) Baso # (Auto) 0.0 K/mm3 K/mm3 (0.0-0.1) Abs Immat Gran (auto) 0.06 K/mm3 H K/mm3 (0.00-0.031) Absolute Neuts (auto) 7.3 K/mm3 H K/mm3 (1.3-6.7) Absolute Nucleated RBC 0.0 K/mm3 K/mm3 (0.0-0.012) Nucleated RBC % 0.0 % % (0.0-0.2) PT 14.1 Seconds Seconds (11.1-14.7) INR 1.1 APTT 29.7 SECONDS SECONDS (22.3-36.8) Sodium 135 mmol/L L mmol/L (137-145) Potassium 3.9 mmol/L mmol/L (3.4-5.0) Chloride 106 mmol/L mmol/L (98-107) Carbon Dioxide 21 mmol/L L mmol/L (22-30) Anion Gap 8 mmol/L mmol/L (8-16) BUN 16 mg/dL mg/dL (7-17) Creatinine 0.70 mg/dL mg/dL (0.7-1.0) Estim Creat Clear Calc 76 ml/min ml/min Estimated GFR > 60 (59 - ) Glucose 197 mg/dL H mg/dL (65-105) Calcium 9.2 mg/dL mg/dL (8.4-10.2) Patient hx anesthesia problems: none Family hx anesthesia problems: none PMFSH Past Medical History Medical History Depression Gastroesophageal reflux Hypertension Morbid obesity Obstructive sleep apnea No longer using her CPAP. Osteoarthritis Osteoarthritis of right hip Peripheral neuropathy Postoperative anemia due to acute blood loss Surgical History Surgical History H/O: hysterectomy History of cataract extraction History of total right hip arthroplasty (~02/06/20) Family History Family History Mother Acute myocardial infarction Father Accidental Social History Social History Social History: The patient lives alone in her own home in [place]. She is a lifelong nonsmoker and denies alcohol and illicit substance use. She has 5 children, and names them all as her surrogate decision makers. She wishes to be a full code. Smoking status: Never smoker Alcohol intake: never Substance use: never Substance use type: does not use Spiritual care
[2020-03-15] VITALS (14 sets, daily range): BP systolic 82–130; BP diastolic 42–71; PULSE 74–90; RESP 12–18; TEMP 36.3–37.2; O2SAT 94–100
[2020-03-15] MEDS: LACTATED RINGERS 1,000 ML 125 ML IV CONT ×2 (01:50→13:55)
[2020-03-15] MEDS: LACTATED RINGERS 1,000 ML 30 ML IV CONT ×2 (07:30→09:05)
--- NOTE | 2020-03-15 08:07 | WPDANESEFPP ---
Anes - Eval Final PreProcedure Day of Procedure 03/15/20 08:07 Patient weight: morbidly obese Heart: regular rate and rhythm Lungs: clear to auscultation and normal air movement Airway: Mallampati scale class II Neurological: alert and oriented Last oral intake: >/= 8 hours ASA classification: III Emergent: no Anesthetic plan: proceed Anesthesia type and monitoring: general ETT and standard monitoring Informed Consent: The patient's anesthetic plan and its attendant risks and benefits were discussed with the patient/family/POA. Questions were solicited and answers provided to the satisfaction of the patient/family/POA.
--- NOTE | 2020-03-15 08:32 | PM.PROC ---
Procedure Note - Detailed Date of procedure: 03/15/20 Pre-op diagnosis: Seroma Surgeon: Master Rai MD Patient brought to OR 7. Anesthetic given. Patient placed lateral. Old incision looked GOOD. Old incision reopened and purulence encountered. Debrided, cultures taken and 6 liters used. Attempted aspiration done of the joint through a separate portal. NO fluid obtained. Closed with #1 Vicryl, 2-0 Vicryl and jamison. Drain placed.
[2020-03-15] MEDS: GENTAMICIN 80MG/SOD CHL 50 ML 80 MG/50 ML BAG 100 MG IVPB ×3 (09:05→23:17)
[2020-03-15] MEDS: fentaNYL CITRATE INJ (*CRX) 100 MCG/2 ML VIAL 25 MCG IV PUSH ×2 (09:50→09:55)
--- NOTE | 2020-03-15 10:28 | PC.NURSE ---
pt. returned to room 247 after surgical procedure
[2020-03-15 10:43] LABS: Hematocrit 31.3 % (37.0-47.0); Hemoglobin 9.9 g/dL (12.0-15.0)
[2020-03-15] MEDS: MORPHINE SULFATE (*CRX) 4 MG/ML INJ 3 MG IV PUSH ×2 (10:57→14:04)
--- NOTE | 2020-03-15 13:00 | WPDCN ---
Assessment and Plan Assessment and plan (1) Postoperative wound infection of right hip: Code(s): T81.49XA - Infection following a procedure, other surgical site, initial encounter Status: Acute Assessment and Plan: Postoperative day 0 status post incision, drainage, and washout of postop wound infection. Management of such as per Dr. Rai, including antibiotics, wound care, and pain management. (2) Postoperative anemia due to acute blood loss: Code(s): D62 - Acute posthemorrhagic anemia Status: Acute Assessment and Plan: Repeat CBC in a.m. to ensure no significant drop. (3) Hypertension: Code(s): I10 - Essential (primary) hypertension Status: Acute Assessment and Plan: Blood pressures were reviewed and are running a bit soft postoperatively. I will hold antihypertensives today and plan on resuming them in the morning. Continue to monitor blood pressures closely. (4) Obstructive sleep apnea: Code(s): G47.33 - Obstructive sleep apnea (adult) (pediatric) Status: Acute Assessment and Plan: CPAP will be provided to the patient for use while hospitalized. She has run out of filters for her CPAP at home, and may need help obtaining those prior to discharge. Additional Plan Thank you for allowing us to participate in this patient's care. Please do not hesitate to contact us with any questions. We will follow with you. Supervising physician for this medical consultation is Dr. Papito Alicia. HPI Data of Consult Date/Time: 03/15/20 13:00. Requesting Physician: Master Rai MD Primary Care Provider: Catarino Rogers, Consult Narrative Narrative: Jennifer Carter is a 69-year-old female with osteoarthritis, hypertension, obstructive sleep apnea, peripheral neuropathy, depression whom the hospitalist service has been consulted for management of her medical conditions. The patient is known to myself as I saw her in consultation on February 06, 2020, status post elective right total hip arthroplasty. Since that surgery she has been at home by herself however home health nurses have been coming in. It sounds like she has not been getting up and about much, spending most of her time in bed and using a bedside commode. A little over a week ago she noticed a knot over the incision with small amounts of serosanguineous drainage, for which she was seen emergency department on March 07. At that time there was no evidence of infection and this was presumed to be a seroma however she was discharged with Bactrim for possible underlying infection. She continued taking the Bactrim however miss the last day of such due to the development of rash and hives. In any event, she got up to use the restroom 2 times in the middle of the night and at that time she noticed a large amount of blood-tinged fluid on the bed sheet. Once again she return to the emergency department, and due to concerns for possible infection the joint was aspirated however yielded no fluid. An area of fluctuance was then aspirated yielded about 20 mL of purulent red/brown fluid. This morning she was taken to the OR and the area was debrided and washed, with a drain left in place. At the time of my evaluation she complains of pain 9/10 which she is not able to describe. It seems to be centered more along the proximal aspect of the incision site. She denies fever, chills, sweats, paresthesias, and skin color and temperature changes distal to the surgical site. Review of Systems Review of Systems: Narrative: 12 systems were reviewed with pertinent positives and negatives as per HPI. No fever, chills, or sweats.
[2020-03-15 13:54] LABS: Hemoglobin A1C 5.5 % (<5.7)
[2020-03-15] MEDS: DOCUSATE SODIUM 100 MG CAPSULE PO (20:32)
[2020-03-16] VITALS (8 sets, daily range): BP systolic 130–144; BP diastolic 63–87; PULSE 76–100; RESP 16–20; TEMP 36.2–37.5; O2SAT 96–98
[2020-03-16] MEDS: HYDROcodone/acetaminophen (*CRX) 5-325 MG TABLET 1 TAB PO ×3 (02:21→21:22)
[2020-03-16 05:22] LABS: Basophils Percent Auto 0.2 % (0.2-1.2); Eosinophils Absolute Auto 0.4 K/mm3 (0-0.3); Eosinophils Percent Auto 3.8 % (0-4.4); Hematocrit 31.7 % (37.0-47.0); Hemoglobin 9.9 g/dL (12.0-15.0); Immature Granulocyte Absolute 0.04 K/mm3 (0.00-0.031); Immature Granulocyte Percent A 0.4 % (0-0.5); Lymphocytes Absolute Auto 2.86 K/mm3 (0.9-3.2); Lymphocytes Percent Auto 28.6 % (18.3-44.2); Mean Corpuscular HGB Conc 31.2 g/dl (32-36); Mean Corpuscular Hemoglobin 28.9 pg (26-34); Mean Corpuscular Volume 92.7 fl (80-100); Mean Platelet Volume 9.5 fl (7.4-10.4); Monocytes Absolute Auto 0.6 K/mm3 (0.1-0.6); Monocytes Percent Auto 6.4 % (2.6-8.5); Neutrophils Absolute Auto 6.1 K/mm3 (1.3-6.7); Neutrophils Percent Auto 60.6 % (45.5-73.1); Platelet Count Result 337 k/mm3 (150-375); Red Blood Count 3.42 M/mm3 (4.2-5.4); Red Cell Distribution Width 13.9 % (11.5-14.5)
[2020-03-16] MEDS: GENTAMICIN 80MG/SOD CHL 50 ML 80 MG/50 ML BAG 100 MG IVPB (05:43)
[2020-03-16 06:00] LABS: Anion Gap 6 mmol/L (8-16); Blood Urea Nitrogen 9 mg/dL (7-17); Calcium 8.8 mg/dL (8.4-10.2); Carbon Dioxide 25 mmol/L (22-30); Chloride 107 mmol/L (98-107); Estimated CRCL calculation 87 ml/min; Estimated Glomerular Filt Rate > 60; Glucose 112 mg/dL (65-105); Potassium 4.4 mmol/L (3.4-5.0); Sodium 138 mmol/L (137-145)
--- NOTE | 2020-03-16 09:14 | WPDINFPN2 ---
Progress Note: A&P Assessment and Plan (1) Postoperative wound infection of right hip: Code(s): T81.49XA - Infection following a procedure, other surgical site, initial encounter Status: Acute Assessment and Plan: Infected hematoma REC Vanc #2 Subjective Date/time seen: 03/16/20 09:14 Objective Data Vital Signs Vital Signs: Vital Signs - 24 hr 03/15/20 09:20 03/15/20 09:35 03/15/20 09:50 Temperature Pulse Rate 78 79 79 Respiratory Rate 12 17 Blood Pressure 114/60 105/48 L 112/60 Pulse Oximetry 100 94 96 03/15/20 10:05 03/15/20 11:00 03/15/20 11:15 Temperature 36.4 C L 36.4 C Pulse Rate 75 74 76 Respiratory Rate 18 18 Blood Pressure 98/56 L 119/57 L 112/59 L Pulse Oximetry 96 98 98 03/15/20 11:30 03/15/20 12:00 03/15/20 14:00 Temperature 36.4 C L 36.7 C 36.6 C Pulse Rate 74 78 84 Respiratory Rate 18 18 18 Blood Pressure 120/53 L 118/51 L 112/49 L Pulse Oximetry 98 98 97 03/15/20 18:00 03/15/20 21:11 03/16/20 02:00 Temperature 36.5 C 37.2 C 37.5 C Pulse Rate 88 90 95 Respiratory Rate 18 16 16 Blood Pressure 130/48 L 120/71 144/63 H Pulse Oximetry 98 98 98 03/16/20 05:11 Temperature 37.1 C Pulse Rate 92 Respiratory Rate 18 Blood Pressure 144/87 H Pulse Oximetry 98 Intake/Output Intake/Output: Intake & Output 03/13/20 03/14/20 03/15/20 03/16/20 23:59 23:59 23:59 23:59 Intake Total 580 4890 300 Output Total 20 1260 670 Balance 560 0770 -370 Meds/Results Medications: Active Medications Generic Name Dose Route Start Last Admin Trade Name Freq PRN Reason Stop Dose Admin Hydrocodone Bitart/Acetaminophen 1 tab 03/15/20 07:25 03/16/20 02:21 [place] 5-325 Mg PO 1 tab Q3H PRN Administration Pain Rated 4-6 Docusate Sodium 100 mg 03/15/20 21:00 03/15/20 20:32 Colace Capsule PO 100 mg Q12HR LINH Administration Vancomycin HCl 1,000 mg in 250 mls @ 250 mls/hr 03/15/20 21:00 03/15/20 21:32 Vancomycin 1,000 Mg/D5w 250 Ml IVPB 03/16/20 09:59 Infused Q12HR LINH Infusion Magnesium Hydroxide 30 ml 03/15/20 07:25 Milk Of Magnesia PO BID PRN Constipation Metoprolol Succinate 50 mg 03/16/20 09:00 Toprol Xl PO DAILY LINH Morphine Sulfate 3 mg 03/15/20 07:25 03/15/20 14:04 Morphine Sulfate Inj (*Crx) IV PUSH 3 mg Q3H PRN Administration Pain Rated 7-10 Naloxone HCl 0.1 mg 03/15/20 07:25 Narcan IV PUSH Q2M PRN Opiate Reversal Radiology Results: ITS Impressions Joint Aspiration/Injection 03/14/20 13:43 IMPRESSION: 1. Ultrasound-guided attempted aspiration along side the neck of the femoral component of a right total hip arthroplasty which yielded no fluid. 2. Successful aspiration of 20 mL of purulent appearing cloudy reddish-brown fluid from a subcutaneous fluid collection located deep to the caudal margin of the surgical wound. Labs Labs: Laboratory Results - last 24 hr 03/15/20 03/15/20 03/16/20 10:31 10:41 04:44 WBC 10.0 RBC 3.42 L Hgb 9.9 L 9.9 L Hct 31.3 L 31.7 L MCV 92.7 MCH 28.9 MCHC 31.2 L RDW 13.9 Plt Count 337 MPV 9.5 Immature Gran % (Auto) 0.4 Neut % (Auto) 60.6 Lymph % (Auto) 28.6 [place] % (Auto) 6.4 Eos % (Auto) 3.8 Baso % (Auto) 0.2 Lymph # (Auto) 2.86 [place] # (Auto) 0.6 Eos # (Auto) 0.4 H Baso # (Auto) 0.0 Abs Immat Gran (auto) 0.04 H Absolute Neuts (auto) 6.1 Absolute Nucleated RBC 0.0 Nucleated RBC % 0.0 Sodium Potassium Chloride Carbon Dioxide Anion Gap BUN Creatinine Estim Creat Clear Calc Estimated GFR Glucose Hemoglobin A1c 5.5 Calcium 03/16/20 04:44 WBC RBC Hgb Hct MCV MCH MCHC RDW Plt Count MPV Immature Gran % (Auto) Neut % (Auto) Lymph % (Auto) [place] % (Auto) Eos % (Auto) Baso % (Auto) Lymph # (Auto) [place] # (Auto) Eos # (Auto) Baso # (Auto) Abs Immat Gran (aut
[2020-03-16] MEDS: DOCUSATE SODIUM 100 MG CAPSULE PO ×2 (09:54→20:48)
[2020-03-16] MEDS: METOPROLOL SUCCINATE EXT REL 50 MG TABCR PO (09:55)
--- NOTE | 2020-03-16 10:26 | PM.IMPN ---
Progress Note: A&P Assessment and Plan (1) Postoperative wound infection of right hip: Code(s): T81.49XA - Infection following a procedure, other surgical site, initial encounter Status: Acute Assessment and Plan: -----postop day 1 of incision and drainage with washout. Dr. rivas is a note reviewed, vancomycin started. Await culture and sensitivities and adjust antibiotic treatment according to that. (2) Postoperative anemia due to acute blood loss: Code(s): D62 - Acute posthemorrhagic anemia Status: Acute Assessment and Plan: -----hemoglobin stable 9.9 today. (3) Hypertension: Code(s): I10 - Essential (primary) hypertension Status: Acute Assessment and Plan: -----last blood pressure 144/87. Will continue with metoprolol (4) Obstructive sleep apnea: Code(s): G47.33 - Obstructive sleep apnea (adult) (pediatric) Status: Acute Assessment and Plan: -----continue CPAP Time Spent With Patient Time with patient: 25 - 35 minutes Subjective Date/time seen: 03/16/20 10:26 Interval history: Pt is a 69-year-old female here for infected hematoma of the right hip. Patient was seen today and states that she thinks she is having or allergic reaction to the tape. The area around the tape is itchy and she is allergic to some types of tape. She is having a little pain in the area but it is tolerable. Pt denies nausea, vomiting, fevers, chills, cough, chest pain, sob, or abdominal pain. Review of Systems Review of Systems: All systems reviewed & are unremarkable except as noted in HPI and below Exam Narrative: Exam Narrative: General: Well developed well nourished patient resting comfortably in bed in NAD HEENT: normocephalic Neck: supple Neuro: Alert and oriented x4. Pulses palpated in both lower extremities CV:RRR Resp:CTA Abd: Soft, non distended. No pain to palpation. Positive bowel sounds Extremities: Right hip incision clean, dry and intact. She did have some erythematous changes underneath the tape and I talked to the nurse about change it out and not taping the bandage to her skin. Drain intact with purulent discharge and blood. Pulses and sensation intact Objective Data Vital Signs Vital Signs: Vital Signs - 24 hr 03/15/20 11:00 03/15/20 11:15 03/15/20 11:30 Temperature 97.5 F L 97.6 F 97.5 F L Pulse Rate 74 76 74 Respiratory Rate 18 18 18 Blood Pressure 119/57 L 112/59 L 120/53 L Pulse Oximetry 98 98 98 03/15/20 12:00 03/15/20 14:00 03/15/20 18:00 Temperature 98.0 F 97.9 F 97.7 F Pulse Rate 78 84 88 Respiratory Rate 18 18 18 Blood Pressure 118/51 L 112/49 L 130/48 L Pulse Oximetry 98 97 98 03/15/20 21:11 03/16/20 02:00 03/16/20 05:11 Temperature 99.0 F 99.5 F 98.7 F Pulse Rate 90 95 92 Respiratory Rate 16 16 18 Blood Pressure 120/71 144/63 H 144/87 H Pulse Oximetry 98 98 98 03/16/20 09:55 03/16/20 10:25 Temperature Pulse Rate 100 Respiratory Rate Blood Pressure Pulse Oximetry 97 Intake/Output Intake/Output: Intake & Output 03/13/20 03/14/20 03/15/20 03/16/20 23:59 23:59 23:59 23:59 Intake Total 580 4890 300 Output Total 20 1260 670 Balance 560 3630 -370 Meds/Results Medications: Active Medications Generic Name Dose Route Start Last Admin Trade Name Freq PRN Reason Stop Dose Admin Hydrocodone Bitart/Acetaminophen 1 tab 03/15/20 07:25 03/16/20 02:21 [place] 5-325 Mg PO 1 tab Q3H PRN Administration Pain Rated 4-6 Docusate Sodium 100 mg 03/15/20 21:00 03/16/20 09:54 Colace Capsule PO 100 mg Q12HR LINH Administration Vancomycin HCl 1,500 mg in 500 mls @ 333.333 mls/hr 03/16/20 20:00 Vancomycin 1,500 Mg/D5w 500 Ml IVPB Q12H LINH Magnesium Hydroxide 30 ml 03/15/20 07:25 Milk Of Magnesia PO BID PRN Constipation Metoprolol Succinate 50 mg 03/16/20 09:00 03/16/20 09:55 Toprol Xl PO 50 mg DAILY
--- NOTE | 2020-03-16 11:33 | PM.PNORT ---
Progress Note: A&P Additional Plan Patient is day 1. After irrigation and debridement of subcutaneous layer of right hip replacement wound. A drain is in place and there is some purulenct fluid in the drain. Her white count has normalized. A sedimentation rate and C-reactive protein are ordered for tomorrow. Cultures are no growth to date. These are all cultures from the subcutaneous fluid collection. She was on Bactrim for 1 week prior to admission. Radiology and Dr. Rai's attempt to draw fluid from adjacent to the femoral neck of the total hip prosthesis revealed no fluid. It appears that her antibiotics consist of vancomycin IV at this time. Patient is feeling well. She has intact sensorimotor function in the foot is in good spirits. Dr. Gross has been consulted. Await cultures. Subjective Subjective Date/Time Seen: 03/16/20 11:33 Objective Data Vital Signs Vital Signs: Vital Signs - 24 hr 03/15/20 12:00 03/15/20 14:00 03/15/20 18:00 Temperature 36.7 C 36.6 C 36.5 C Pulse Rate 78 84 88 Respiratory Rate 18 18 18 Blood Pressure 118/51 L 112/49 L 130/48 L Pulse Oximetry 98 97 98 03/15/20 21:11 03/16/20 02:00 03/16/20 05:11 Temperature 37.2 C 37.5 C 37.1 C Pulse Rate 90 95 92 Respiratory Rate 16 16 18 Blood Pressure 120/71 144/63 H 144/87 H Pulse Oximetry 98 98 98 03/16/20 09:55 03/16/20 10:25 Temperature Pulse Rate 100 Respiratory Rate Blood Pressure Pulse Oximetry 97 Intake/Output Intake/Output: Intake & Output 03/13/20 03/14/20 03/15/20 03/16/20 23:59 23:59 23:59 23:59 Intake Total 580 4890 300 Output Total 20 1260 670 Balance 560 3630 -370 Meds/Results Medications: Active Medications Generic Name Dose Route Start Last Admin Trade Name Freq PRN Reason Stop Dose Admin Hydrocodone Bitart/Acetaminophen 1 tab 03/15/20 07:25 03/16/20 02:21 [place] 5-325 Mg PO 1 tab Q3H PRN Administration Pain Rated 4-6 Docusate Sodium 100 mg 03/15/20 21:00 03/16/20 09:54 Colace Capsule PO 100 mg Q12HR LINH Administration Vancomycin HCl 1,500 mg in 500 mls @ 333.333 mls/hr 03/16/20 20:00 Vancomycin 1,500 Mg/D5w 500 Ml IVPB Q12H [facility] Magnesium Hydroxide 30 ml 03/15/20 07:25 Milk Of Magnesia PO BID PRN Constipation Metoprolol Succinate 50 mg 03/16/20 09:00 03/16/20 09:55 Toprol Xl PO 50 mg DAILY LINH Administration Morphine Sulfate 3 mg 03/15/20 07:25 03/15/20 14:04 Morphine Sulfate Inj (*Crx) IV PUSH 3 mg Q3H PRN Administration Pain Rated 7-10 Naloxone HCl 0.1 mg 03/15/20 07:25 Narcan IV PUSH Q2M PRN Opiate Reversal Radiology Results: ITS Impressions Joint Aspiration/Injection 03/14/20 13:43 IMPRESSION: 1. Ultrasound-guided attempted aspiration along side the neck of the femoral component of a right total hip arthroplasty which yielded no fluid. 2. Successful aspiration of 20 mL of purulent appearing cloudy reddish-brown fluid from a subcutaneous fluid collection located deep to the caudal margin of the surgical wound. Labs Labs: Laboratory Results - last 24 hr 03/15/20 03/16/20 03/16/20 10:41 04:44 04:44 WBC 10.0 RBC 3.42 L Hgb 9.9 L Hct 31.7 L MCV 92.7 MCH 28.9 MCHC 31.2 L RDW 13.9 Plt Count 337 MPV 9.5 Immature Gran % (Auto) 0.4 Neut % (Auto) 60.6 Lymph % (Auto) 28.6 [place] % (Auto) 6.4 Eos % (Auto) 3.8 Baso % (Auto) 0.2 Lymph # (Auto) 2.86 [place] # (Auto) 0.6 Eos # (Auto) 0.4 H Baso # (Auto) 0.0 Abs Immat Gran (auto) 0.04 H Absolute Neuts (auto) 6.1 Absolute Nucleated RBC 0.0 Nucleated RBC % 0.0 Sodium 138 Potassium 4.4 Chloride 107 Carbon Dioxide 25 Anion Gap 6 L BUN 9 D Creatinine 0.60 L Estim Creat Clear Calc 87 Estimated GFR > 60 Glucose 112 H Hemoglobin A1c 5.5 Calcium 8.8 Quality VTE Prophylaxis VTE prophylaxis: mechanica
--- NOTE | 2020-03-16 13:13 | CONS_ITS ---
DATE OF CONSULTATION: 03/16/2020 REASON FOR CONSULTATION: Surgical site infection. HISTORY OF PRESENT ILLNESS: A 69-year-old female who had a right hip operation on February 05 for osteoarthritis. This is a right total hip arthroplasty. The patient reports initial recovery, but in the last 2 weeks, she noted clear to yellow drainage from the right hip, which became markedly worse several days prior to admission. She had been given trimethoprim sulfa as treatment beginning about 6 days prior to admission. Wound drainage markedly increased one day before admission, and she was directed to the emergency room and was admitted on the . She is now on day 2 of vancomycin. She was taken to the operating room yesterday. Purulence was encountered in the subcutaneous tissues. Aspiration of the joint was attempted with no fluid obtained. Preoperatively, she also had aspiration of the joint in Radiology. Again, no fluid evacuated, but fluid was taken out percutaneously from the subcutaneous tissues. Cultures are in process. She has been on no other recent antibiotics. No immunosuppressants. No fever, chills, or sweats. She has no other prosthetic devices. There has been [id number] pain. She notes no trauma to the incision. No pain distally nor proximally. She did have some itching with the trimethoprim sulfa. Otherwise, no reactions. ALLERGIES: PENICILLIN CAUSED FACIAL RASH OR HIVES IN THE DISTANT PAST. PRESENT MEDICATIONS: No immunosuppressants. HABITS: Never smoked. No alcohol to excess. PAST MEDICAL HISTORY: In addition to the above, hysterectomy, cataract, peripheral neuropathy, MELVIN, hypertension, GERD, and past depression. FAMILY HISTORY: Not pertinent to her present illness. SOCIAL HISTORY: She customarily see Dr. Rogers, who lives in [place]. She is and retired. REVIEW OF SYSTEMS: 14-point review otherwise negative. PHYSICAL EXAMINATION: GENERAL: This is an elderly female, who appears her actual age. In no distress. VITAL SIGNS: Afebrile since arrival, 92, 18, 144/87, 98% on room air. SKIN: No generalized rash. Warm and dry. EENT: The pupils equal, round, and reactive to light. Conjunctivae are normal. No paranasal sinus erythema, edema, or tenderness. The oropharynx and oral mucosa normal. Teeth in excellent repair. NECK: No meningismus, mass or thyromegaly. LUNGS: Clear to auscultation and percussion. CARDIAC: Regular rate and rhythm. No murmur, gallop, or rub. Pulses are 2+ and equal. ABDOMEN: Morbidly obese, nontender. No masses. No organomegaly. EXTREMITIES: Without clubbing, cyanosis, or edema. She has MINOO hose in place along with antithrombotic devices. MUSCULOSKELETAL: Right hip is dressed from the OR, I did not remove. She has an accordion drain in place with serosanguineous drainage in the tubing. None is present in the accordion container. NEUROLOGIC: Awake, alert, oriented, appropriate. LABORATORY DATA: From the aspirate and from the OR, Gram stains are showing few to moderate white blood cells. No organism seen in any of the specimens. All cultures, no growth, after 1 to 1-1/2 days incubation. White blood cell count on 02/07/2020 was 13.3. On 03/07 was 12.6. On readmission, 11.5, now normal at 10.0. Hemoglobin 9.9, which is stable since yesterday. Platelets 337. Differential is normal. Chemistry panel normal except for glucose of 112. A1c however is 5.5%. Lactate normal. Alkaline phosphatase 135. Liver function tests otherwise normal. RADIOLOGY DATA: Not redone. ASSESSMENT: 1. Infected hematoma of the right hip, resulting in superficial surgical site infection. Cutaneous organisms are suspected rather than hematogenous infection of other organisms. She has no sepsis. No oth
--- NOTE | 2020-03-16 15:26 | WPDANESPN ---
Anes - Prog Note Post-Op Date/Time: 03/16/20 15:26 Cardiovascular status: normal Respiratory status: normal Airway patency: baseline Mental status: baseline Post-Op hydration status: normal Vital Signs: Last Vital Signs Temp 37.1 C 03/16/20 05:11 Pulse 100 03/16/20 09:55 Resp 18 03/16/20 05:11 BP 144/87 H 03/16/20 05:11 Pulse Ox 97 03/16/20 10:25 Pain Score (VAS): 07/06 I/O: Intake & Output 03/15/20 03/16/20 03/16/20 23:59 07:59 15:59 Intake Total 1480 300 250 Output Total 450 670 Balance 1030 -370 250 Laboratory Tests 03/16/20 04:44 03/16/20 04:44 03/16/20 03/16/20 04:44 04:44 WBC 10.0 RBC 3.42 L Hgb 9.9 L Hct 31.7 L MCV 92.7 MCH 28.9 MCHC 31.2 L RDW 13.9 Plt Count 337 MPV 9.5 Immature Gran % (Auto) 0.4 Neut % (Auto) 60.6 Lymph % (Auto) 28.6 [place] % (Auto) 6.4 Eos % (Auto) 3.8 Baso % (Auto) 0.2 Lymph # (Auto) 2.86 [place] # (Auto) 0.6 Eos # (Auto) 0.4 H Baso # (Auto) 0.0 Abs Immat Gran (auto) 0.04 H Absolute Neuts (auto) 6.1 Absolute Nucleated RBC 0.0 Nucleated RBC % 0.0 Sodium 138 Potassium 4.4 Chloride 107 Carbon Dioxide 25 Anion Gap 6 L BUN 9 D Creatinine 0.60 L Estim Creat Clear Calc 87 Estimated GFR > 60 Glucose 112 H Calcium 8.8 Microbiology 03/14/20 12:57 Hip Right Anaerobic Culture - Preliminary 03/14/20 12:57 Hip Right Aerobic Culture - Preliminary 03/15/20 08:20 Hip Right Anaerobic Culture - Preliminary 03/15/20 08:16 Hip Right Anaerobic Culture - Preliminary 03/15/20 08:16 Hip Right Anaerobic Culture - Preliminary Post-procedural complaints: none Patient Feedback: Patient satisfied with anesthetic care.
[2020-03-17] VITALS (7 sets, daily range): BP systolic 139–149; BP diastolic 63–82; PULSE 69–81; RESP 16–22; TEMP 36.2–36.7; O2SAT 96–99
[2020-03-17 05:31] LABS: Hematocrit 32.3 % (37.0-47.0); Hemoglobin 10.2 g/dL (12.0-15.0); Mean Corpuscular HGB Conc 31.6 g/dl (32-36); Mean Corpuscular Hemoglobin 29.1 pg (26-34); Mean Platelet Volume 9.5 fl (7.4-10.4); Platelet Count Result 338 k/mm3 (150-375); Red Blood Count 3.51 M/mm3 (4.2-5.4); Red Cell Distribution Width 13.7 % (11.5-14.5)
[2020-03-17 05:49] LABS: Alanine Aminotransferase 12 U/L (4-35); Albumin Level 3.5 g/dL (3.5-5.1); Alkaline Phosphatase 114 U/L (38-126); Anion Gap 5 mmol/L (8-16); Aspartate Amino Transferase 17 U/L (14-36); Bilirubin,Total 0.3 mg/dL (0.2-1.3); Blood Urea Nitrogen 9 mg/dL (7-17); CRP 3.1 mg/dL (<1.0); Calcium 9.1 mg/dL (8.4-10.2); Carbon Dioxide 26 mmol/L (22-30); Chloride 106 mmol/L (98-107); Estimated CRCL calculation 103 ml/min; Estimated Glomerular Filt Rate > 60; Glucose 109 mg/dL (65-105); Potassium 4.1 mmol/L (3.4-5.0); Sodium 137 mmol/L (137-145)
[2020-03-17 06:05] LABS: Erythrocyte Sedimentation Rate 78 mm/hr (0-20)
[2020-03-17] MEDS: DOCUSATE SODIUM 100 MG CAPSULE PO ×2 (08:43→22:38)
[2020-03-17] MEDS: METOPROLOL SUCCINATE EXT REL 50 MG TABCR PO (08:58)
--- NOTE | 2020-03-17 10:57 | PM.PNORT ---
Progress Note: A&P Additional Plan patient is postop day 2 status post incision and drainage and debridement left hip wound which appears to be an infected hematoma superficially. The patient is status post left total hip arthroplasty done 1 month ago. She will be monitored medically when she is deemed stable to discharge home she will go home on oral antibiotics per Dr. Gross from Infectious Disease service. She will be followed postoperatively by Dr. Rai as well at the office as an outpatient. Subjective Subjective Date/Time Seen: 03/17/20 10:57 Patient is status post open wound debridement for infected total hip incision, she is postop day 2 now. Patient is feeling well with no other complaints today. Laboratory studies show white count to be coming down and cultures and Gram stain were negative from Fridays aspiration and also Saturdays surgical wound cultures. Patient is currently on IV antibiotics with a plan to go home on oral medication per Dr. Gross. Review of Systems Review of Systems: All systems reviewed & are unremarkable except as noted in HPI and below Exam Narrative: Exam Narrative: Vital signs stable, afebrile. Neurovascularly she is intact. Wound dressing intact, there was some drainage into the hip drain noted yesterday. Patient was having some skin reaction to adhesive tape This will be changed to hip spica dressing. Objective Data Vital Signs Vital Signs: Vital Signs - 24 hr 03/16/20 14:00 03/16/20 21:59 03/16/20 22:05 Temperature 36.4 C L 36.2 C L Pulse Rate 80 79 76 Respiratory Rate 16 20 20 Blood Pressure 130/67 143/64 H Pulse Oximetry 98 98 96 03/17/20 01:41 03/17/20 02:00 03/17/20 06:00 Temperature 36.2 C L 36.6 C Pulse Rate 72 75 69 Respiratory Rate 17 20 20 Blood Pressure 147/65 H 146/64 H Pulse Oximetry 99 99 98 03/17/20 08:58 Temperature Pulse Rate 70 Respiratory Rate Blood Pressure Pulse Oximetry Intake/Output Intake/Output: Intake & Output 03/14/20 03/15/20 03/16/20 03/17/20 23:59 23:59 23:59 23:59 Intake Total 580 9990 2770 500 Output Total 20 1260 1520 850 Balance 560 3630 1250 -350 Meds/Results Medications: Active Medications Generic Name Dose Route Start Last Admin Trade Name Freq PRN Reason Stop Dose Admin Hydrocodone Bitart/Acetaminophen 1 tab 03/15/20 07:25 03/16/20 21:22 [place] 5-325 Mg PO 1 tab Q3H PRN Administration Pain Rated 4-6 Diphenhydramine HCl 25 mg 03/16/20 12:42 Benadryl Cap PO Q6H PRN Itching Docusate Sodium 100 mg 03/15/20 21:00 03/17/20 08:43 Colace Capsule PO 100 mg Q12HR LINH Administration Vancomycin HCl 1,500 mg in 500 mls @ 333.333 mls/hr 03/16/20 20:00 03/17/20 08:58 Vancomycin 1,500 Mg/D5w 500 Ml IVPB 150 mls/hr Q12H LINH Administration Magnesium Hydroxide 30 ml 03/15/20 07:25 Milk Of Magnesia PO BID PRN Constipation Metoprolol Succinate 50 mg 03/16/20 09:00 03/17/20 08:58 Toprol Xl PO 50 mg DAILY LINH Administration Morphine Sulfate 3 mg 03/15/20 07:25 03/15/20 14:04 Morphine Sulfate Inj (*Crx) IV PUSH 3 mg Q3H PRN Administration Pain Rated 7-10 Naloxone HCl 0.1 mg 03/15/20 07:25 Narcan IV PUSH Q2M PRN Opiate Reversal Radiology Results: ITS Impressions Joint Aspiration/Injection 03/14/20 13:43 IMPRESSION: 1. Ultrasound-guided attempted aspiration along side the neck of the femoral component of a right total hip arthroplasty which yielded no fluid. 2. Successful aspiration of 20 mL of purulent appearing cloudy reddish-brown fluid from a subcutaneous fluid collection located deep to the caudal margin of the surgical wound. Labs Labs: Laboratory Results - last 24 hr 03/17/20 03/17/20 03/17/20 05:00 05:00 05:00 WBC 9.0 RBC 3.51 L Hgb 10.2 L Hct 32.3 L MCV 92.0 MCH 29.1 MCHC 31.6 L RDW 13.7 Plt Count 338 MPV 9.5 ESR 78 H Sodium
--- NOTE | 2020-03-17 11:51 | PM.IMPN ---
Progress Note: A&P Assessment and Plan (1) Postoperative wound infection of right hip: Code(s): T81.49XA - Infection following a procedure, other surgical site, initial encounter Status: Acute Assessment and Plan: -----postop day 2 of incision and drainage with washout. Dr. rivas's note reviewed, continue antibiotics per him. Cultures x4 no growth as of today. Okay from medical standpoint to discharge whenever infectious disease and ortho agree. Drain per Ortho. (2) Postoperative anemia due to acute blood loss: Code(s): D62 - Acute posthemorrhagic anemia Status: Acute Assessment and Plan: -----hemoglobin .2 today. (3) Hypertension: Code(s): I10 - Essential (primary) hypertension Status: Acute Assessment and Plan: -----last blood pressure 146/64. Will continue with metoprolol (4) Obstructive sleep apnea: Code(s): G47.33 - Obstructive sleep apnea (adult) (pediatric) Status: Acute Assessment and Plan: -----continue CPAP Subjective Date/time seen: 03/17/20 11:51 Interval history: Pt is a 69-year-old female here for infected hematoma of the right hip. Patient was seen today and doing well. She said she finally had a bowel movement and feels better. She says she is having some pain in her hip but the rash and itching is better since the tape has been removed. She is eating and drinking okay and has no complaints today. She specifically denies chest pain, shortness of breath, fevers, chills, nausea or vomiting Exam Narrative: Exam Narrative: General: Well developed well nourished patient resting comfortably in the chair in NAD HEENT: normocephalic Neck: supple Neuro: Alert and oriented x4. Pulses palpated in both lower extremities CV:RRR Resp:CTA Abd: Soft, non distended. No pain to palpation. Positive bowel sounds Extremities: Right hip incision clean, dry and intact. Less erythema today. Drain intact with purulent discharge and blood. Pulses and sensation intact Objective Data Vital Signs Vital Signs: Vital Signs - 24 hr 03/16/20 14:00 03/16/20 21:59 03/16/20 22:05 Temperature 97.5 F L 97.1 F L Pulse Rate 80 79 76 Respiratory Rate 16 20 20 Blood Pressure 130/67 143/64 H Pulse Oximetry 98 98 96 03/17/20 01:41 03/17/20 02:00 03/17/20 06:00 Temperature 97.1 F L 97.9 F Pulse Rate 72 75 69 Respiratory Rate 17 20 20 Blood Pressure 147/65 H 146/64 H Pulse Oximetry 99 99 98 03/17/20 08:58 Temperature Pulse Rate 70 Respiratory Rate Blood Pressure Pulse Oximetry Intake/Output Intake/Output: Intake & Output 03/14/20 03/15/20 03/16/20 03/17/20 23:59 23:59 23:59 23:59 Intake Total 580 2190 2770 500 Output Total 20 1260 1520 850 Balance 560 3630 1250 -350 Meds/Results Medications: Active Medications Generic Name Dose Route Start Last Admin Trade Name Freq PRN Reason Stop Dose Admin Hydrocodone Bitart/Acetaminophen 1 tab 03/15/20 07:25 03/16/20 21:22 [place] 5-325 Mg PO 1 tab Q3H PRN Administration Pain Rated 4-6 Diphenhydramine HCl 25 mg 03/16/20 12:42 Benadryl Cap PO Q6H PRN Itching Docusate Sodium 100 mg 03/15/20 21:00 03/17/20 08:43 Colace Capsule PO 100 mg Q12HR LINH Administration Vancomycin HCl 1,500 mg in 500 mls @ 333.333 mls/hr 03/16/20 20:00 03/17/20 08:58 Vancomycin 1,500 Mg/D5w 500 Ml IVPB 150 mls/hr Q12H LINH Administration Magnesium Hydroxide 30 ml 03/15/20 07:25 Milk Of Magnesia PO BID PRN Constipation Metoprolol Succinate 50 mg 03/16/20 09:00 03/17/20 08:58 Toprol Xl PO 50 mg DAILY LINH Administration Morphine Sulfate 3 mg 03/15/20 07:25 03/15/20 14:04 Morphine Sulfate Inj (*Crx) IV PUSH 3 mg Q3H PRN Administration Pain Rated 7-10 Naloxone HCl 0.1 mg 03/15/20 07:25 Narcan IV PUSH Q2M PRN Opiate Reversal Radiology Results: ITS I
[2020-03-17] MEDS: HYDROcodone/acetaminophen (*CRX) 5-325 MG TABLET 1 TAB PO ×2 (12:09→19:51)
--- NOTE | 2020-03-17 13:20 | WPDINFPN2 ---
Progress Note: A&P Assessment and Plan (1) Postoperative wound infection of right hip: Code(s): T81.49XA - Infection following a procedure, other surgical site, initial encounter Status: Acute Assessment and Plan: 1. Infected hematoma, albeit no + microbiology 2. IVANIA, no visible violation in fascia, but she is nonetheless at risk of hardware infection REC Vanc #3, continue at least another 1 day. recheck CRP (3.1 today), and convert to oral antibiotic 4-6 weeks, once acceptable clinical improvement. I do not anticipate need for IV antibiotics after hospital discharge. Discussed. Subjective Date/time seen: 03/17/20 13:20 Interval history: no new complaints Exam Narrative: Exam Narrative: afebrile Const: General: no acute distress Eyes: General: appearance normal, both eyes and all related structures Resp: Effort & Inspection: normal respiratory effort Auscultation: clear to auscultation bilaterally Cardio: Rate: regular rate Rhythm: regular rhythm Heart sounds: no murmurs GI: Inspection: distended GI Palp: Yes Soft to palpation and No Tenderness to palpation present (GI) Skin: General skin exam: normal color and no rashes or lesions noted Extrem: Other: wound dressed Objective Data Vital Signs Vital Signs: Vital Signs - 24 hr 03/16/20 14:00 03/16/20 21:59 03/16/20 22:05 Temperature 36.4 C L 36.2 C L Pulse Rate 80 79 76 Respiratory Rate 16 20 20 Blood Pressure 130/67 143/64 H Pulse Oximetry 98 98 96 03/17/20 01:41 03/17/20 02:00 03/17/20 06:00 Temperature 36.2 C L 36.6 C Pulse Rate 72 75 69 Respiratory Rate 17 20 20 Blood Pressure 147/65 H 146/64 H Pulse Oximetry 99 99 98 03/17/20 08:58 Temperature Pulse Rate 70 Respiratory Rate Blood Pressure Pulse Oximetry Intake/Output Intake/Output: Intake & Output 03/14/20 03/15/20 03/16/20 03/17/20 23:59 23:59 23:59 23:59 Intake Total 580 7841 2770 980 Output Total 20 1260 1520 850 Balance 560 3630 1250 130 Meds/Results Medications: Active Medications Generic Name Dose Route Start Last Admin Trade Name Freq PRN Reason Stop Dose Admin Hydrocodone Bitart/Acetaminophen 1 tab 03/15/20 07:25 03/17/20 12:09 [place] 5-325 Mg PO 1 tab Q3H PRN Administration Pain Rated 4-6 Diphenhydramine HCl 25 mg 03/16/20 12:42 Benadryl Cap PO Q6H PRN Itching Docusate Sodium 100 mg 03/15/20 21:00 03/17/20 08:43 Colace Capsule PO 100 mg Q12HR LINH Administration Vancomycin HCl 1,500 mg in 500 mls @ 333.333 mls/hr 03/16/20 20:00 03/17/20 08:58 Vancomycin 1,500 Mg/D5w 500 Ml IVPB 150 mls/hr Q12H LINH Administration Magnesium Hydroxide 30 ml 03/15/20 07:25 Milk Of Magnesia PO BID PRN Constipation Metoprolol Succinate 50 mg 03/16/20 09:00 03/17/20 08:58 Toprol Xl PO 50 mg DAILY LINH Administration Morphine Sulfate 3 mg 03/15/20 07:25 03/15/20 14:04 Morphine Sulfate Inj (*Crx) IV PUSH 3 mg Q3H PRN Administration Pain Rated 7-10 Naloxone HCl 0.1 mg 03/15/20 07:25 Narcan IV PUSH Q2M PRN Opiate Reversal Radiology Results: ITS Impressions Joint Aspiration/Injection 03/14/20 13:43 IMPRESSION: 1. Ultrasound-guided attempted aspiration along side the neck of the femoral component of a right total hip arthroplasty which yielded no fluid. 2. Successful aspiration of 20 mL of purulent appearing cloudy reddish-brown fluid from a subcutaneous fluid collection located deep to the caudal margin of the surgical wound. Labs Labs: Laboratory Results - last 24 hr 03/17/20 03/17/20 03/17/20 05:00 05:00 05:00 WBC 9.0 RBC 3.51 L Hgb 10.2 L Hct 32.3 L MCV 92.0 MCH 29.1 MCHC 31.6 L RDW 13.7 Plt Count 338 MPV 9.5 ESR 78 H Sodium 137 Potassium 4.1 Chloride 106 Carbon Dioxide 26 Anion Gap 5 L BUN 9 Creatinine 0.50 L Estim Creat Clear Calc 103 Estimat
--- NOTE | 2020-03-17 14:16 | WPDCDIQUERY2 ---
CDI Query Clarification Request -03/15 OR procedure note states debrided , cultures taken and 6 liters used. Please clarify if debridement was excisional or non excisional and the deepest layer that was debrided.
[2020-03-18] VITALS (8 sets, daily range): BP systolic 138–140; BP diastolic 60–69; PULSE 73–87; RESP 14–22; TEMP 36.3–37; O2SAT 95–99
[2020-03-18 07:28] LABS: Vancomycin Trough 13.1 ug/mL (10.0-20.0)
[2020-03-18] MEDS: METOPROLOL SUCCINATE EXT REL 50 MG TABCR PO (08:08)
[2020-03-18] MEDS: DOCUSATE SODIUM 100 MG CAPSULE PO ×2 (08:08→21:23)
--- NOTE | 2020-03-18 14:18 | WPDINFPN2 ---
Progress Note: A&P Assessment and Plan (1) Postoperative wound infection of right hip: Code(s): T81.49XA - Infection following a procedure, other surgical site, initial encounter Status: Acute Assessment and Plan: 1. Infected hematoma, albeit no + microbiology 2. IVANIA, no visible violation in fascia, but she is nonetheless at risk of hardware infection REC Vanc #4, continue at least another 1 day. recheck CRP, possible oral therapy tomorrow x weeks. Subjective Date/time seen: 03/18/20 14:18 Interval history: no complaints Exam Narrative: Exam Narrative: afebrile Const: General: no acute distress Resp: Auscultation: clear to auscultation bilaterally Cardio: Rate: regular rate Rhythm: regular rhythm GI: GI Palp: Yes Soft to palpation and No Tenderness to palpation present (GI) Extrem: Other: drain in place, serosanguinous fluid in drain tubing Objective Data Vital Signs Vital Signs: Vital Signs - 24 hr 03/17/20 22:00 03/17/20 22:35 03/18/20 02:18 Temperature 36.6 C Pulse Rate 81 78 73 Respiratory Rate 16 22 H 14 Blood Pressure 139/63 Pulse Oximetry 98 96 96 03/18/20 04:00 03/18/20 08:08 03/18/20 10:11 Temperature 36.6 C Pulse Rate 78 78 Respiratory Rate 20 Blood Pressure 138/61 Pulse Oximetry 99 95 Intake/Output Intake/Output: Intake & Output 03/15/20 03/16/20 03/17/20 03/18/20 23:59 23:59 23:59 23:59 Intake Total 4890 2770 3160 1180 Output Total 1260 1520 2190 1410 Balance 3630 1250 970 -230 Meds/Results Medications: Active Medications Generic Name Dose Route Start Last Admin Trade Name Freq PRN Reason Stop Dose Admin Hydrocodone Bitart/Acetaminophen 1 tab 03/15/20 07:25 03/17/20 19:51 [place] 5-325 Mg PO 1 tab Q3H PRN Administration Pain Rated 4-6 Diphenhydramine HCl 25 mg 03/16/20 12:42 Benadryl Cap PO Q6H PRN Itching Docusate Sodium 100 mg 03/15/20 21:00 03/18/20 08:08 Colace Capsule PO 100 mg Q12HR LINH Administration Vancomycin HCl 1,500 mg in 500 mls @ 333.333 mls/hr 03/16/20 20:00 03/18/20 10:02 Vancomycin 1,500 Mg/D5w 500 Ml IVPB Infused Q12H LINH Infusion Magnesium Hydroxide 30 ml 03/15/20 07:25 Milk Of Magnesia PO BID PRN Constipation Metoprolol Succinate 50 mg 03/16/20 09:00 03/18/20 08:08 Toprol Xl PO 50 mg DAILY ILNH Administration Morphine Sulfate 3 mg 03/15/20 07:25 03/15/20 14:04 Morphine Sulfate Inj (*Crx) IV PUSH 3 mg Q3H PRN Administration Pain Rated 7-10 Naloxone HCl 0.1 mg 03/15/20 07:25 Narcan IV PUSH Q2M PRN Opiate Reversal Radiology Results: ITS Impressions Joint Aspiration/Injection 03/14/20 13:43 IMPRESSION: 1. Ultrasound-guided attempted aspiration along side the neck of the femoral component of a right total hip arthroplasty which yielded no fluid. 2. Successful aspiration of 20 mL of purulent appearing cloudy reddish-brown fluid from a subcutaneous fluid collection located deep to the caudal margin of the surgical wound. Labs Labs: Laboratory Results - last 24 hr 03/18/20 06:50 Vancomycin Trough 13.1
--- NOTE | 2020-03-18 16:35 | PM.PNORT ---
Progress Note: A&P Additional Plan Today the drain was removed from the patient's right hip wound at bedside. The patient tolerated procedure well. Wound appears to be improving status post surgery and with IV vancomycin. Will continue IV antibiotics for least 1 more day monitor the wound which appears to be improving. When medically cleared and Dr. Gross recommends home antibiotic regimen the patient will be discharged home. The patient voiced understanding agrees above plan. Time Spent With Patient Time with patient: less than 15 minutes Subjective Subjective Date/Time Seen: 03/18/20 16:35 Patient is postop day 3 status post right hip incision and drainage with debridement of infected right hip wound. patient states that today she feels well no constitutional symptoms no fevers or chills. Pain is well controlled she is sitting up in a chair was able to stand to assist with drain removal today. The drain has very little fluid in it today, everything else looks good. She is currently on IV vancomycin Dr. Gross is recommended 1 more day minimum, patient should be able to discharge to home in 1-2 days on oral antibiotics. Cultures so far show no growth. Review of Systems Review of Systems: All systems reviewed & are unremarkable except as noted in HPI and below Exam Narrative: Exam Narrative: Vital signs stable. Afebrile. Neurovascular the patient is intact. Wound is clean and dry with resolving erythema, no drainage from the wound currently. Drain showed very little fluid in it over the last shift. Calves are benign. Objective Data Vital Signs Vital Signs: Vital Signs - 24 hr 03/17/20 22:00 03/17/20 22:35 03/18/20 02:18 Temperature 36.6 C Pulse Rate 81 78 73 Respiratory Rate 16 22 H 14 Blood Pressure 139/63 Pulse Oximetry 98 96 96 03/18/20 04:00 03/18/20 08:08 03/18/20 10:11 Temperature 36.6 C Pulse Rate 78 78 Respiratory Rate 20 Blood Pressure 138/61 Pulse Oximetry 99 95 03/18/20 14:00 Temperature 36.3 C L Pulse Rate 80 Respiratory Rate 18 Blood Pressure 140/60 Pulse Oximetry 99 Intake/Output Intake/Output: Intake & Output 03/15/20 03/16/20 03/17/20 03/18/20 23:59 23:59 23:59 23:59 Intake Total 4890 2770 3160 1660 Output Total 1260 1520 2190 1410 Balance 3630 1250 970 250 Meds/Results Medications: Active Medications Generic Name Dose Route Start Last Admin Trade Name Freq PRN Reason Stop Dose Admin Hydrocodone Bitart/Acetaminophen 1 tab 03/15/20 07:25 03/17/20 19:51 [place] 5-325 Mg PO 1 tab Q3H PRN Administration Pain Rated 4-6 Diphenhydramine HCl 25 mg 03/16/20 12:42 Benadryl Cap PO Q6H PRN Itching Docusate Sodium 100 mg 03/15/20 21:00 03/18/20 08:08 Colace Capsule PO 100 mg Q12HR LINH Administration Vancomycin HCl 1,500 mg in 500 mls @ 333.333 mls/hr 03/16/20 20:00 03/18/20 10:02 Vancomycin 1,500 Mg/D5w 500 Ml IVPB Infused Q12H LINH Infusion Magnesium Hydroxide 30 ml 03/15/20 07:25 Milk Of Magnesia PO BID PRN Constipation Metoprolol Succinate 50 mg 03/16/20 09:00 03/18/20 08:08 Toprol Xl PO 50 mg DAILY LINH Administration Morphine Sulfate 3 mg 03/15/20 07:25 03/15/20 14:04 Morphine Sulfate Inj (*Crx) IV PUSH 3 mg Q3H PRN Administration Pain Rated 7-10 Naloxone HCl 0.1 mg 03/15/20 07:25 Narcan IV PUSH Q2M PRN Opiate Reversal Radiology Results: ITS Impressions Joint Aspiration/Injection 03/14/20 13:43 IMPRESSION: 1. Ultrasound-guided attempted aspiration along side the neck of the femoral component of a right total hip arthroplasty which yielded no fluid. 2. Successful aspiration of 20 mL of purulent appearing cloudy reddish-brown fluid from a subcutaneous fluid collection located deep to the caudal margin of the surgical wound. Labs Labs: Laboratory Results - last 24 hr 03/18/20 06:50 Vancomycin Trough 13.1
[2020-03-19 04:55] VITALS: BP 148/65; PULSE 75; RESP 16; TEMP 36.5; O2SAT 98
[2020-03-19 05:07] LABS: CRP 2.1 mg/dL (<1.0)
[2020-03-19 08:04] VITALS: PULSE 75
[2020-03-19] MEDS: METOPROLOL SUCCINATE EXT REL 50 MG TABCR PO (08:04)
[2020-03-19] MEDS: DOCUSATE SODIUM 100 MG CAPSULE PO (08:04)
--- NOTE | 2020-03-19 09:42 | PM.PNORT ---
Progress Note: A&P Additional Plan Patient will discharge to home today once oral antibiotic course has been determined by Dr. rivas. We will see the patient back for recheck of the wound next week. The patient voiced understanding agrees above plan to call the office immediately for any problems difficulties or questions. Time Spent With Patient Time with patient: less than 15 minutes Subjective Subjective Date/Time Seen: 03/19/20 09:42 Patient is postop day 4 status post I&D right hip for infected hip wound. Drain was pulled yesterday today the wound is clean and dry and looks good patient is up ambulating with a walker pain is well controlled she has no other complaints feels good. Patient is deemed stable for discharge home once Dr. rivas determines the oral antibiotic course. Review of Systems Review of Systems: All systems reviewed & are unremarkable except as noted in HPI and below Exam Narrative: Exam Narrative: Vital signs stable afebrile neurovascular the patient has intact wound at this point is clean and dry erythema is resolving nicely. Calves are benign. Patient ambulated today with a walker full weight-bearing comfortably. Objective Data Vital Signs Vital Signs: Vital Signs - 24 hr 03/18/20 10:11 03/18/20 14:00 03/18/20 20:56 Temperature 36.3 C L 37.0 C Pulse Rate 80 84 Respiratory Rate 18 16 Blood Pressure 140/60 140/69 Pulse Oximetry 95 99 98 03/18/20 20:59 03/18/20 21:01 03/19/20 04:55 Temperature 36.5 C Pulse Rate 85 87 75 Respiratory Rate 22 H 16 Blood Pressure 148/65 H Pulse Oximetry 97 97 98 03/19/20 08:04 Temperature Pulse Rate 75 Respiratory Rate Blood Pressure Pulse Oximetry Intake/Output Intake/Output: Intake & Output 03/16/20 03/17/20 03/18/20 03/19/20 23:59 23:59 23:59 23:59 Intake Total 2770 3160 3140 980 Output Total 1520 2190 1410 1500 Balance 8259 922 9125 -520 Meds/Results Medications: Active Medications Generic Name Dose Route Start Last Admin Trade Name Freq PRN Reason Stop Dose Admin Hydrocodone Bitart/Acetaminophen 1 tab 03/15/20 07:25 03/17/20 19:51 [place] 5-325 Mg PO 1 tab Q3H PRN Administration Pain Rated 4-6 Diphenhydramine HCl 25 mg 03/16/20 12:42 Benadryl Cap PO Q6H PRN Itching Docusate Sodium 100 mg 03/15/20 21:00 03/19/20 08:04 Colace Capsule PO 100 mg Q12HR LINH Administration Vancomycin HCl 1,500 mg in 500 mls @ 333.333 mls/hr 03/16/20 20:00 03/19/20 08:14 Vancomycin 1,500 Mg/D5w 500 Ml IVPB 0 mls/hr Q12H LINH Infusion Magnesium Hydroxide 30 ml 03/15/20 07:25 Milk Of Magnesia PO BID PRN Constipation Metoprolol Succinate 50 mg 03/16/20 09:00 03/19/20 08:04 Toprol Xl PO 50 mg DAILY LINH Administration Morphine Sulfate 3 mg 03/15/20 07:25 03/15/20 14:04 Morphine Sulfate Inj (*Crx) IV PUSH 3 mg Q3H PRN Administration Pain Rated 7-10 Naloxone HCl 0.1 mg 03/15/20 07:25 Narcan IV PUSH Q2M PRN Opiate Reversal Radiology Results: ITS Impressions Joint Aspiration/Injection 03/14/20 13:43 IMPRESSION: 1. Ultrasound-guided attempted aspiration along side the neck of the femoral component of a right total hip arthroplasty which yielded no fluid. 2. Successful aspiration of 20 mL of purulent appearing cloudy reddish-brown fluid from a subcutaneous fluid collection located deep to the caudal margin of the surgical wound. Labs Labs: Laboratory Results - last 24 hr 03/19/20 04:28 C-Reactive Protein 2.1 H Quality VTE Prophylaxis VTE prophylaxis: mechanical ordered
--- NOTE | 2020-03-19 09:50 | PM.DS ---
DS: Admitting Diagnosis Admitting Diagnosis Admitting Diagnosis: Seroma septic wound R hip DC dx; smae DS: Summary Time Spent with Patient Time attestation: Total time spent providing and/or coordinating discharge services: Exam Narrative: Exam Narrative: vss stable afebrile neurovascular the patient has intact wound at this time is clean dry no drainage is noted erythema is improved status post surgery. Calves are benign. Patient is alert and oriented x3. Normal mood and affect pain is well controlled. Patient is ambulating independently with a walker at this point. DS: Data Data Completed and Pending Labs on day of discharge: Labs from last 24 hours 03/19/20 04:28 C-Reactive Protein 2.1 H Preliminary micro results at discharge 03/15/20 08:16 Anaerobic Culture - Preliminary Hip Right 03/15/20 08:16 Anaerobic Culture - Preliminary Hip Right 03/15/20 08:20 Anaerobic Culture - Preliminary Hip Right 03/14/20 12:57 Anaerobic Culture - Preliminary Hip Right Aerobic Culture - Preliminary Discharge Plan Discharge Attending physician on discharge: Master Rai Consulting providers: Mike Gross Discharging Clinician: Eleuterio Ryan Anticipated Discharge Date/Time: 03/19/20 13:00 Patient Disposition: Home Health Service Activity: no shower and as tolerated Diet: as tolerated Wound Care Instructions: keep dressing dry and change dressing daily Discharge Instructions: Per Care Coordination. Patient to have [facility] for PT/OT eval and treat [phone]. RN please fax discharge instructions to: [phone]. Patient Instructions: Antibiotic Form Stand Alone Forms: General Discharge Information Follow-up/Referrals: Master Rai MD [Physician] - Mike Gross MD [Physician] - Discharge Medications: New hydrocodone-acetaminophen 5-325 mg Tablet 1 tab PO Q3H PRN (Reason: Pain Rated 4-6) Qty: 40 RF: 0 Continued metoprolol succinate 50 mg tablet extended release 24 hr 50 mg PO DAILY RF: 0 Discontinued sulfamethoxazole-trimethoprim [Bactrim DS] 800-160 mg tablet 1 tablet PO Q12H Qty: 14 RF: 0 Date of admission: 03/16/20 10:31 Primary Care Provider: Ken,Catarino Aguilar Admitting Provider: Master Rai Attending physician on admission: Master Rai Condition: Stable Quality VTE Prophylaxis VTE prophylaxis: mechanical ordered
--- NOTE | 2020-03-19 10:13 | PC.NURSE ---
Awaiting antibiotic recommendation from Dr. Gross. Eleuterio Ryan aware. Patient will discharge after this.
--- NOTE | 2020-03-19 12:39 | WPDINFPN2 ---
Progress Note: A&P Assessment and Plan (1) Postoperative wound infection of right hip: Code(s): T81.49XA - Infection following a procedure, other surgical site, initial encounter Status: Acute Assessment and Plan: 1. Infected hematoma, albeit no + microbiology. CRP appropriate decline 2. IVANIA, no visible violation in fascia, but she is nonetheless at risk of hardware infection REC Vanc #5, stop and place on doxycycline 100 bid x 30 days, see orders, ok discharge. Subjective Date/time seen: 03/19/20 12:39 Interval history: no complaints Exam Narrative: Exam Narrative: afebrile Const: General: no acute distress Eyes: General: appearance normal, both eyes and all related structures Resp: Effort & Inspection: normal respiratory effort Auscultation: clear to auscultation bilaterally Cardio: Rate: regular rate Rhythm: regular rhythm Heart sounds: Gallop heart sound present GI: Inspection: non-distended GI Palp: No Tenderness to palpation present (GI) Skin: General skin exam: normal color and no rashes or lesions noted Extrem: Other: r thigh mild nonpitting edema, no tenderness no erythema Objective Data Vital Signs Vital Signs: Vital Signs - 24 hr 03/18/20 14:00 03/18/20 20:56 03/18/20 20:59 Temperature 36.3 C L 37.0 C Pulse Rate 80 84 85 Respiratory Rate 18 16 Blood Pressure 140/60 140/69 Pulse Oximetry 99 98 97 03/18/20 21:01 03/19/20 04:55 03/19/20 08:04 Temperature 36.5 C Pulse Rate 87 75 75 Respiratory Rate 22 H 16 Blood Pressure 148/65 H Pulse Oximetry 97 98 Intake/Output Intake/Output: Intake & Output 03/16/20 03/17/20 03/18/20 03/19/20 23:59 23:59 23:59 23:59 Intake Total 2770 3160 3140 1480 Output Total 1520 2190 1410 1500 Balance 8820 188 7917 -20 Meds/Results Medications: Active Medications Generic Name Dose Route Start Last Admin Trade Name Freq PRN Reason Stop Dose Admin Hydrocodone Bitart/Acetaminophen 1 tab 03/15/20 07:25 03/17/20 19:51 [place] 5-325 Mg PO 1 tab Q3H PRN Administration Pain Rated 4-6 Diphenhydramine HCl 25 mg 03/16/20 12:42 Benadryl Cap PO Q6H PRN Itching Docusate Sodium 100 mg 03/15/20 21:00 03/19/20 08:04 Colace Capsule PO 100 mg Q12HR LINH Administration Magnesium Hydroxide 30 ml 03/15/20 07:25 Milk Of Magnesia PO BID PRN Constipation Metoprolol Succinate 50 mg 03/16/20 09:00 03/19/20 08:04 Toprol Xl PO 50 mg DAILY LINH Administration Morphine Sulfate 3 mg 03/15/20 07:25 03/15/20 14:04 Morphine Sulfate Inj (*Crx) IV PUSH 3 mg Q3H PRN Administration Pain Rated 7-10 Naloxone HCl 0.1 mg 03/15/20 07:25 Narcan IV PUSH Q2M PRN Opiate Reversal Radiology Results: ITS Impressions Joint Aspiration/Injection 03/14/20 13:43 IMPRESSION: 1. Ultrasound-guided attempted aspiration along side the neck of the femoral component of a right total hip arthroplasty which yielded no fluid. 2. Successful aspiration of 20 mL of purulent appearing cloudy reddish-brown fluid from a subcutaneous fluid collection located deep to the caudal margin of the surgical wound. Labs Labs: Laboratory Results - last 24 hr 03/19/20 04:28 C-Reactive Protein 2.1 H
== END 2020-03-19 14:35 | disposition home health service (06) | DRG 920 ==
LOC: ANHED 15:06 → ANH2MED 16:58
PROVIDERS: Internal Medicine Infectious Disease; Orthopaedic Surgery; Physician Assistant; Admitting Provider Orthopaedic Surgery; Emergency Provider Emergency Medicine; PCP Internal Medicine; Visit Provider Physician Assistant Surgical
PROC: 0HDHXZZ Extraction of Right Upper Leg Skin, External Approach (ICD-10-PCS; principal; 2020-03-15 07:30)
DX: L76.34 Postprocedural seroma of skin and subcutaneous tissue following other procedure (principal); T81.49XA Infection following a procedure, other surgical site, initial encounter; D62 Acute posthemorrhagic anemia; Z68.41 Body mass index [BMI] 40.0-44.9, adult; E66.01 Morbid (severe) obesity due to excess calories; Z96.641 Presence of right artificial hip joint; R73.9 Hyperglycemia, unspecified; I10 Essential (primary) hypertension; G47.33 Obstructive sleep apnea (adult) (pediatric); G62.9 Polyneuropathy, unspecified; M19.90 Unspecified osteoarthritis, unspecified site; Z23 Encounter for immunization; Z79.01 Long term (current) use of anticoagulants; Z88.0 Allergy status to penicillin; Z98.49 Cataract extraction status, unspecified eye
CPT/HCPCS: 20611; 36415; 80048; 80076; 80202; 83036; 85014; 85018; 85025; 85027; 85610; 85652; 85730; 86140; 87070; 87075; 87205; 90471; 90686; 93005; 96361; 96365; 96368; 96375; 96376; 97110; 97116; 97161; 97166; 97530; 99285; A9270; G0008; G0378; J0330; J1170; J1580; J2001; J2250; J2270; J2405; J2704; J3010; J3370; J7120

== ENCOUNTER 2021-06-16 01:29 | Day surgery (SDC) | payer MEDICARE, SELFPAY ==
[2021-06-04 14:27] VITALS: BMI 39.5
[2021-06-16 07:37] VITALS: BP 145/71; PULSE 85; RESP 22; TEMP 36.3; O2SAT 96; BMI 38.0
[2021-06-16] MEDS: LACTATED RINGERS 1,000 ML 30 ML IV CONT (07:40)
--- NOTE | 2021-06-16 07:56 | P.PNAN_ITS ---
Anes - Initial Pre Proc Eval Procedure: Operation Date: 06/16/21 08:30 Proposed Procedures p Esophagogastroduodenoscopy & Screening Colonoscopy - Ced Hale MD Date/Time: 06/16/21 07:56 Surgeon: Ced Swann MD Pre Op Diagnosis: dysphagia, neoplasm screening Patient Data Age: 70 Gender: F Height: 1.63 m Weight: 100.6 kg Last Vital Signs Temp 36.3 C L 06/16/21 07:37 Pulse 85 06/16/21 07:37 Resp 22 H 06/16/21 07:37 BP 145/71 H 06/16/21 07:37 Pulse Ox 96 06/16/21 07:37 Allergies Allergy/AdvReac Type Severity Reaction Status Date / Time adhesive tape Allergy Hives Verified 06/16/21 07:36 Penicillins AdvReac Hives Verified 06/16/21 07:36 Home Medications Medication Instructions Recorded Confirmed Type metoprolol succinate 50 mg PO DAILY 01/25/20 06/16/21 History hydrocodone-acetaminophen 1 tab PO Q3H PRN #40 tablet 03/19/20 06/16/21 Rx donepezil [Aricept] 5 mg PO DAILY 06/04/21 06/16/21 History doxycycline hyclate [LymePak] 100 mg PO Q12HR 06/04/21 06/16/21 History Patient hx anesthesia problems: none Family hx anesthesia problems: none Results Review: All pre-operative results and documents have been reviewed as part of the pre-operative evaluation. [facility] Past Medical History Medical History Depression Gastroesophageal reflux Hypertension Morbid obesity Obstructive sleep apnea She does not use her CPAP because she ran out of filters. Osteoarthritis Peripheral neuropathy Surgical History Surgical History History of cataract extraction History of hysterectomy History of total right hip arthroplasty (~02/06/20) Family History Family History Mother Acute myocardial infarction Father Accidental Social History Social History Social History: The patient lives alone in her own home in [place]. She is a lifelong nonsmoker and denies alcohol and illicit substance use. She has 5 children, and names them all as her surrogate decision makers. She wishes to be a full code. Smoking status: Never smoker Alcohol intake: never Alcohol use details: 1-2 PER MONTH Substance use: never Substance use type: does not use Living arrangements: alone Spiritual care concerns: No Anes - Eval Final PreProcedure Day of Procedure 06/16/21 07:56 Patient weight: obese Heart: regular rate and rhythm Lungs: clear to auscultation Airway: Mallampati scale class II Neurological: alert and oriented Last oral intake: >/= 8 hours ASA classification: III Emergent: no Anesthetic plan: proceed Anesthesia type and monitoring: general GIVS and standard monitoring Results Review: All pre-operative results and documents have been reviewed as part of the pre-operative evaluation. Informed Consent: The patient's anesthetic plan and its attendant risks and benefits were discussed with the patient/family/POA. Questions were solicited and answers provided to the satisfaction of the patient/family/POA.
--- NOTE | 2021-06-16 08:36 | PM.HPGS ---
History of Present Illness History of Present Illness Consent: Risks, benefits, and alternatives have been discussed and questions answered. Patient agrees to proceed with procedure. Chief complaint: dysphagia, neoplasm screening Narrative: Jennifer Carter is a 70 year old female with choking and cough, also needs screening colonoscopy. Review of Systems Constitutional: Constitutional: Denies headache(s) and Denies weakness Eyes: Eyes: Denies blurry vision ENT: Reports Normal hearing present, Denies headache(s) and Denies neck pain Cardiovascular: Cardiovascular: Denies chest pain and Denies dyspnea Respiratory: Respiratory: Denies dyspnea Gastrointestinal: Gastrointestinal: Reports no additional gastrointestinal complaints Genitourinary: Genitourinary: Denies dysuria Musculoskeletal: Musculoskeletal: Denies neck pain Integumentary/Breasts: Skin/Breast: Denies dry skin Neurologic: Reports Normal hearing present, Denies headache(s) and Denies weakness Psychiatric: Psychiatric: Denies anxiety Endocrine: Endocrine: Denies change in body appearance Hematologic/Lymphatic: Hematologic/Lymphatic: Denies easy bleeding Allergic/Immunologic: Allergic/Immunologic: Denies urticaria [facility] Past Medical History Medical History (Updated 06/16/21 @ 08:37 by Ced Swann MD) Choking Colon cancer screening Depression Gastroesophageal reflux Hypertension Morbid obesity Obstructive sleep apnea She does not use her CPAP because she ran out of filters. Osteoarthritis Peripheral neuropathy Surgical History Surgical History History of cataract extraction History of hysterectomy History of total right hip arthroplasty (~02/06/20) Family History Family History Mother Acute myocardial infarction Father Accidental Social History Social History Social History: The patient lives alone in her own home in [place]. She is a lifelong nonsmoker and denies alcohol and illicit substance use. She has 5 children, and names them all as her surrogate decision makers. She wishes to be a full code. Smoking status: Never smoker Alcohol intake: never Alcohol use details: 1-2 PER MONTH Substance use: never Substance use type: does not use Living arrangements: alone Spiritual care concerns: No Meds Home Medications and Allergies Home Medications Medication Instructions Recorded Confirmed Type metoprolol succinate 50 mg PO DAILY 01/25/20 06/16/21 History hydrocodone-acetaminophen 1 tab PO Q3H PRN #40 tablet 03/19/20 06/16/21 Rx donepezil [Aricept] 5 mg PO DAILY 06/04/21 06/16/21 History doxycycline hyclate [LymePak] 100 mg PO Q12HR 06/04/21 06/16/21 History Allergies Allergy/AdvReac Type Severity Reaction Status Date / Time adhesive tape Allergy Hives Verified 06/16/21 07:36 Penicillins AdvReac Hives Verified 06/16/21 07:36 Vital Signs Vital Signs - 24 hr 06/16/21 07:37 Temperature 97.3 F L Pulse Rate 85 Respiratory Rate 22 H Blood Pressure 145/71 H Pulse Oximetry 96 Exam Const: General: comfortable and no acute distress HENMT: General nose exam: Normal nares present Eyes: General: appearance normal, both eyes and all related structures Neck: Neck: no JVD Resp: Auscultation: clear to auscultation bilaterally Cardio: Rate: regular rate Rhythm: regular rhythm GI: Inspection: non-distended GI Palp: Yes Soft to palpation Skin: General skin exam: normal color Neuro: General: gait normal Speech: normal speech Extrem: General: normal to inspection Psych: Mental Status: mental status grossly normal Assessment and Plan Assessment and plan (1) Choking: Code(s): T17.308A - Unspecified foreign body in larynx causing other injury, initial encounter Status: Acute
[2021-06-16 09:10] VITALS: BP 95/60; PULSE 61; RESP 20; O2SAT 96
--- NOTE | 2021-06-16 09:11 | SUR.OPER ---
EGD start 842 End 846 Colonoscopy start 850 End 906
[2021-06-16 09:20] VITALS: BP 99/52; PULSE 63; RESP 21; O2SAT 96
[2021-06-16 09:30] VITALS: BP 118/69; PULSE 66; RESP 21; O2SAT 98
== END 2021-06-16 09:54 | disposition home or self-care (01) ==
PROVIDERS: PCP Internal Medicine; Visit Provider Internal Medicine Gastroenterology
PROC: 0DJ08ZZ Inspection of Upper Intestinal Tract, Via Natural or Artificial Opening Endoscopic (ICD-10-PCS; CPT 43235; principal; 2021-06-16 08:30)
DX: Z12.11 Encounter for screening for malignant neoplasm of colon (principal); D12.3 Benign neoplasm of transverse colon; K57.30 Diverticulosis of large intestine without perforation or abscess without bleeding; K64.8 Other hemorrhoids; R13.10 Dysphagia, unspecified; K21.00 Gastro-esophageal reflux disease with esophagitis, without bleeding; I10 Essential (primary) hypertension; G47.33 Obstructive sleep apnea (adult) (pediatric); G62.9 Polyneuropathy, unspecified; F32.9 Major depressive disorder, single episode, unspecified; E66.9 Obesity, unspecified; Z68.38 Body mass index [BMI] 38.0-38.9, adult
CPT/HCPCS: 45385; 43239; 88305; J2704; J7120